=== PATIENT | male | born 1960 | race African-American/Black ===

== ENCOUNTER 2016-08-15 02:40 | Inpatient (IN) | payer MEDICAID ==
[2016-08-15] VITALS (14 sets, daily range): BP systolic 141–212; BP diastolic 65–95; PULSE 56–84; RESP 16–19; TEMP 97.7–98.2; O2SAT 97–100
[2016-08-15] MEDS ORDERED: ASPIRIN 81 MG CHEW TAB PO ONE (03:15)
[2016-08-15] MEDS ORDERED: SODIUM CHLORIDE 0.9% FLUSH 10 ML FLUSH IVF PRN (03:15)
[2016-08-15] MEDS: NITROGLYCERIN 0.4 MG SL 25 TABS/BTL SL SCH ×3 (03:20→03:32)
[2016-08-15 03:23] LABS: AUTOMATED NEUTROPHIL # 2.9 TH/MM3 (1.8-7.7); BASOPHIL # 0.1 TH/MM3 (0-0.2); BASOPHIL % 1.8 % (0.0-2.0); EOSINOPHIL # 0.2 TH/MM3 (0-0.4); HEMATOCRIT 35.3 % (39.0-51.0); HEMO FLAGS DIFF FINAL; LYMPH % 35.2 % (9.0-44.0); MEAN CELL VOLUME 91.7 FL (80.0-100.0); MEAN CORPUSCULAR HGB CONC 34.9 % (32.0-36.0); MONO % 8.8 % (0.0-8.0); NEUT % 50.2 % (16.0-70.0); PLATELET COUNT 286 TH/MM3 (150-450); RED BLOOD COUNT 3.85 MIL/MM3 (4.50-5.90); RED CELL DISTRIBUTION WIDTH 14.4 % (11.6-17.2); WHITE BLOOD COUNT 5.7 TH/MM3 (4.0-11.0)
[2016-08-15 03:30] LABS: APTT (PATIENT) 26.6 SEC (24.3-30.1); PROTHROMBIN TIME - PATIENT 11.4 SEC (9.8-11.6)
--- NOTE | 2016-08-15 03:31 | PD ---
HPI Chief Complaint: Chest Pain Time Seen by Provider: 03:00 Travel History International Travel<30 days: No Contact w/Intl Traveler<30days: No Traveled to known affect area: No History of Present Illness HPI 55-year-old male with history of CAD, cardiac stents 2, AICD, history for evaluation of chest discomfort. The patient reports having chest discomfort since around 5:00 PM yesterday evening. Pain is been constant, described as pressure/sharp, no modifying factors. He denies dyspnea. States that the pain feels slightly similar to when he had an [place] and had stents placed in April of this year in [facility]. No history of DVT or PE. No paresthesias or motor deficits. No fevers, chills, cough, or recent illness. He reports compliance with aspirin 81 mg daily and Plavix. PFSH Past Medical History Hx Anticoagulant Therapy: Yes Depression: Yes Cardiac Catheterization: Yes (cardiac stent x2) Cardiovascular Problems: Yes (MIx2) Cerebrovascular Accident: Yes Coronary Artery Disease: Yes Diabetes: Yes Patient Takes Glucophage: No Hypertension: Yes Social History Alcohol Use: No Tobacco Use: No (quit 3months ago) Substance Use: No Allergies-Medications (Allergen,Severity, Reaction): Coded Allergies: No Known Allergies (Unverified , 08/15/16) Review of Systems Except as stated in HPI: all other systems reviewed are Neg Physical Exam Narrative GENERAL: Well-developed, well-nourished, comfortable, no acute distress. SKIN: Focused skin assessment warm/dry. HEAD: Atraumatic. Normocephalic. EYES: Pupils equal and round. No scleral icterus. No injection or drainage. ENT: Mucous membranes pink and moist. NECK: Trachea midline. No JVD. CARDIOVASCULAR: Regular rate and rhythm. Distal pulses brisk and equal bilaterally. RESPIRATORY: No accessory muscle use. Clear to auscultation. Breath sounds equal bilaterally. GASTROINTESTINAL: Abdomen soft, non-tender, nondistended. MUSCULOSKELETAL: No obvious deformities. No clubbing. No cyanosis. No edema. NEUROLOGICAL: Awake and alert. No obvious cranial nerve deficits. Motor grossly within normal limits. Normal speech. PSYCHIATRIC: Appropriate mood and affect; insight and judgment normal. Data Data Last Documented VS Vital Signs Date Time Temp Pulse Resp B/P Pulse Ox O2 Delivery O2 Flow Rate FiO2 08/15/16 03:39 70 16 141/65 08/15/16 03:08 100 08/15/16 02:41 97.8 Room Air Orders Electrocardiogram (08/15/16 03:07) Basic Metabolic Panel (Bmp) (08/15/16 03:07) Ckmb (Isoenzyme) Profile (08/15/16 03:07) Complete Blood Count With Diff (08/15/16 03:07) Magnesium (Mg) (08/15/16 03:07) Prothrombin Time / Inr (Pt) (08/15/16 03:07) Act Partial Throm Time (Ptt) (08/15/16 03:07) Troponin I (08/15/16 03:07) Chest, Single Ap (08/15/16 03:07) Ecg Monitoring (08/15/16 03:07) Iv Access Insert/Monitor (08/15/16 03:07) Oximetry (08/15/16 03:07) Aspirin Chew (Aspirin Chew) (08/15/16 03:15) Sodium Chloride 0.9% Flush (Ns Flush) (08/15/16 03:15) Nitroglycerin Sl (Nitrostat Sl) (08/15/16 03:15) CKMB (08/15/16 03:10) CKMB% (08/15/16 03:10) Ondansetron Inj (Zofran Inj) (08/15/16 04:00) Labs Laboratory Tests Test 08/15/16 03:10 White Blood Count 5.7 TH/MM3 Red Blood Count 3.85 MIL/MM3 Hemoglobin 12.3 GM/DL Hematocrit 35.3 % Mean Corpuscular Volume 91.7 FL Mean Corpuscular Hemoglobin 32.0 PG Mean Corpuscular Hemoglobin 34.9 % Concent Red Cell Distribution Width 14.4 % Platelet Count 286 TH/MM3 Mean Platelet Volume 9.4 FL Neutrophils (%) (Auto) 50.2 % Lymphocytes (%) (Auto) 35.2 % Monocytes (%) (Auto) 8.8 % Eosinophils (%) (Auto) 4.0 % Basophils (%) (Auto) 1.8 % Neutrophils # (Auto) 2.9 TH/MM3 Lymphocytes # (Auto) 2.0 TH/MM3 Monocytes # (Auto) 0.5 TH/MM3 Eosinophils # (Auto) 0.2 TH/MM3 Basophils # (Auto) 0.1 TH/MM3 CBC Comment DIFF FINAL Differential Comment Prothrombin Time 11.4 SEC Prothromb Time International 1.0 RATIO Ratio Activated Partial 26.6 SEC Thromboplast Time Sodium Level 140 MEQ/L Potassium Level 5.2 MEQ/L Chloride Level 106 MEQ/L Carbon Dioxide Level 28.7 MEQ/L Anion Gap 5 MEQ/L Blood Urea Nitrogen 13 MG/DL Creatinine 1.12 MG/DL Estimat Glomerular Filtration 68 ML/MIN Rate Random Glucose 111 MG/DL Calcium Level 8.5 MG/DL Magnesium Level 1.6 MG/DL Total Creatine Kinase 205 U/L Creatine Kinase MB 2.9 NG/ML Troponin I 0.11 NG/ML MDM Medical Decision Making Medical Screen Exam Complete: Yes Emergency Medical Condition: Yes Interpretation(s) EKG: Sinus, rate 81, normal axis, normal intervals, LVH, Q waves in inferior leads, T-wave inversions in inferior leads Differential Diagnosis ACS, pneumothorax, pericarditis, PE, pneumonia Narrative Course Initial vital signs show heart rate 77, blood pressure 212/95, pulse ox 99% on room air, oral temp of 97.8F. After sublingual nitroglycerin the patient's blood pressure improved to 141/65. CBC is essentially unremarkable. BMP shows a potassium of 5.2 with slight hemolysis. Troponin is 0.11. Chest x-ray shows no acute cardio pulmonary disease. EKG does show Q waves in inferior leads with T-wave inversions in inferior leads with signs of LVH. There are no ST elevations. Patient's chest pain improved with nitroglycerin, however he became nauseous. He was given a full aspirin here in the emergency department. Case discussed with hospitalist Dr. Nicholson. The patient will be admitted to her service to the PSYCHIATRIC. She will start the patient on heparin. Diagnosis Primary Impression: Chest pain Qualified Code: R07.9 - Chest pain, unspecified type Additional Impression: Elevated troponin Admitting Information Admitting Physician Requests: Admit Bobby Diop MD August 15, 2016 03:31
[2016-08-15 03:39] LABS: ANION GAP 5 MEQ/L (5-15); BICARBONATE 28.7 MEQ/L (21.0-32.0); BLOOD UREA NITROGEN 13 MG/DL (7-18); CHLORIDE 106 MEQ/L (98-107); CREATINE KINASE 205 U/L (39-308); GLOMERULAR FILTRATION RATE 68 ML/MIN (>89); MAGNESIUM 1.6 MG/DL (1.5-2.5); SODIUM (NA) 140 MEQ/L (136-145)
--- NOTE | 2016-08-15 03:39 | RADRPT ---
EXAM DATE/TIME: 08/15/2016 03:20 [facility] COMPARISON: No previous studies available for comparison. INDICATIONS : Chest pain. MEDICAL HISTORY : None. SURGICAL HISTORY : None. ENCOUNTER: Initial ACUITY: 1 day PAIN SCORE: 0/10 LOCATION: Bilateral chest FINDINGS: The cardiac silhouette is enlarged in transverse diameter. The lungs are free of acute parenchymal op acity. No effusions are identified. A defibrillator device is in place via a left sided approach. CONCLUSION: 1. Cardiomegaly. No acute pulmonary disease. Pablo Mcdonald MD on August 15, 2016 at 3:37 Board Certified Radiologist. This report was verified electronically.
[2016-08-15 03:40] LABS: POTASSIUM 5.2 MEQ/L (3.5-5.1)
[2016-08-15 03:53] LABS: CKMB 2.9 NG/ML (0.5-3.6)
[2016-08-15] MEDS ORDERED: ONDANSETRON HCL 4 MG/2 ML VIAL IV PUSH ONE (04:00)
[2016-08-15] MEDS ORDERED: NALOXONE HCL 0.4 MG/ML AMP IV PRN (04:30)
[2016-08-15] MEDS ORDERED: SODIUM CHLORIDE 0.9% FLUSH 10 ML FLUSH IV FLUSH PRN (04:30)
--- NOTE | 2016-08-15 04:49 | HHI.HP ---
[facility] Reji Oliveira MD Admission Diagnosis chest pain, elevated troponin Diagnoses: Travel History International Travel<30 Days: No Contact w/Intl Traveler <30 Da: No Traveled to Known Affected Are: No History of Present Illness History from patient, er physician communication, and review of medical records. Patient reported that yesterday starting around 5:30 PM, he started not feeling well. He reports he was nauseous, had some chest pain, and was also having some headaches. He states that he then went to bed and at around 11:30 PM, he was woken up from sleep because of similar symptoms with chest pains and nausea. He states he went to the bathroom to vomit as well. He reports that this was then followed by having hiccups. He states that once he starts having hiccups and nausea, he knew that these were the symptoms of his prior heart attacks and therefore decided to come to hospital. He reports he had MIs twice in both time had similar symptoms. He reports that his chest tightness was not associated with pounding of his heart beat where he could hear it. Also associated with shortness of breath. Patient denies seeing any blood in his stool or urine. Also denies any cough. Denies any nausea or vomiting in previous days. Review of Systems Except as stated in HPI: all other systems reviewed are Neg Past Family Social History Past Medical History htn dm cad - 2 stents apr 22, 2016 aicd - apr 2016 for chf - maybe ppm as well from his discription chf liver enzymes high cva- residual right weakness, speech Past Surgical History coronary angiogram with 2 stent ppm or aicd placement Allergies: Coded Allergies: No Known Allergies (Unverified , 08/15/16) Family History sister had cva and cad family hx of heart problems in multiple members Social History smokes cigars and cigarrettes about 2 packs 2 weeks no drinking - used to drink about 10 or 12 beers a week or 2 beers a day used to use marijuana, occasional cocaine Physical Exam Vital Signs Vital Signs Date Time Temp Pulse Resp B/P Pulse Ox O2 Delivery O2 Flow Rate FiO2 08/15/16 03:39 70 16 141/65 08/15/16 03:39 16 08/15/16 03:31 68 145/65 08/15/16 03:25 70 151/66 08/15/16 03:08 100 08/15/16 02:41 97.8 77 18 212/95 99 Room Air Physical Exam GENERAL: This is a well-nourished, well-developed patient, in no apparent distress. SKIN: No rashes, ecchymoses or lesions. Cool and dry. HEAD: Atraumatic. Normocephalic. No temporal or scalp tenderness. EYES: No scleral icterus. No injection or drainage. ENT: Nose without bleeding, purulent drainage or septal hematoma. Airway patent. NECK: Trachea midline. No JVD Supple, nontender, no meningeal signs. CARDIOVASCULAR: Regular rate and rhythm without murmurs, gallops, or rubs. RESPIRATORY: Clear to auscultation. Breath sounds equal bilaterally. No wheezes , rales, or rhonchi. GASTROINTESTINAL: Abdomen soft, non-tender, nondistended. No guarding. MUSCULOSKELETAL: Extremities without clubbing, cyanosis, or edema. No calf tenderness. NEUROLOGICAL: Awake and alert. Motor and sensory grossly within normal limits. Normal speech. Laboratory Laboratory Tests Test 08/15/16 03:10 White Blood Count 5.7 Red Blood Count 3.85 Hemoglobin 12.3 Hematocrit 35.3 Mean Corpuscular Volume 91.7 Mean Corpuscular Hemoglobin 32.0 Mean Corpuscular Hemoglobin 34.9 Concent Red Cell Distribution Width 14.4 Platelet Count 286 Mean Platelet Volume 9.4 Neutrophils (%) (Auto) 50.2 Lymphocytes (%) (Auto) 35.2 Monocytes (%) (Auto) 8.8 Eosinophils (%) (Auto) 4.0 Basophils (%) (Auto) 1.8 Neutrophils # (Auto) 2.9 Lymphocytes # (Auto) 2.0 Monocytes # (Auto) 0.5 Eosinophils # (Auto) 0.2 Basophils # (Auto) 0.1 CBC Comment DIFF FINAL Differential Comment Prothrombin Time 11.4 Prothromb Time International 1.0 Ratio Activated Partial 26.6 Thromboplast Time Sodium Level 140 Potassium Level 5.2 Chloride Level 106 Carbon Dioxide Level 28.7 Anion Gap 5 Blood Urea Nitrogen 13 Creatinine 1.12 Estimat Glomerular Filtration 68 Rate Random Glucose 111 Calcium Level 8.5 Magnesium Level 1.6 Total Creatine Kinase 205 Creatine Kinase MB 2.9 Troponin I 0.11 Result Diagram: 08/15/1630908/15/16 031 Imaging Last 48 hours Impressions Chest X-Ray 08/15/16 030 Signed Impressions: Service Date/Time: Monday, August 15, 2016 03:20 - CONCLUSION: 1. Cardiomegaly. No acute pulmonary disease. Pablo Mcdonald MD Assessment and Plan Problem List: (1) Chest pain ICD Code: R07.9 Status: Acute (2) Elevated troponin ICD Code: R74.8 Status: Acute Assessment and Plan Impression: Non-ST elevation MD htn dm cad - 2 stents apr 22, 2016 aicd - apr 2016 for chf - maybe ppm as well from his discription chf liver enzymes high cva- residual right weakness, speech Plan: Serial cardiac enzymes and EKGs. Start patient on heparin drip. Aspirin full dose cardiology consult nitroglycerin prn sl monitor fingersticks with sliding scale coverage hold long acting insulin and oral hypoglycemics DVT prophylaxis on heparin drip GI prophylax on pantoprao Discussed Condition With patient, ER MD, family member at bedside Physician Certification 2 Midnight Certification Type: Admission for Inpatient Services Order for Inpatient Services The services are ordered in accordance with Medicare regulations or non- Medicare payer requirements, as applicable. In the case of services not specified as inpatient-only, they are appropriately provided as inpatient services in accordance with the 2-midnight benchmark. Estimated LOS (days): 2 days is the estimated time the patient will need to remain in the hospital, assuming treatment plan goals are met and no additional complications. Post-Hospital Plan: Home Problem Qualifiers (1) Chest pain: Qualified Code: R07.9 - Chest pain, unspecified type Adrienne Nicholson MD August 15, 2016 04:49
[2016-08-15] MEDS ORDERED: HEPARIN-D5W INJ 250 ML IV SCH (05:00)
[2016-08-15] MEDS ORDERED: NITROGLYCERIN 0.4 MG SL 25 TABS/BTL SL PRN (07:00)
[2016-08-15] MEDS: SODIUM CHLORIDE 0.9% FLUSH 10 ML FLUSH IV FLUSH SCH ×2 (08:24→20:46)
[2016-08-15] MEDS: NITROGLYCERIN 2% OINT 1 GM PACKET TOPICAL SCH ×2 (08:24→15:41)
--- NOTE | 2016-08-15 08:33 | EKG ---
Date Performed: 08/15/2016 Time Performed: 02:57:37 PTAGE: 55 years EKG: Sinus rhythm POSSIBLE LEFT ATRIAL ENLARGEMENT LEFT VENTRICULAR HYPERTROPHY AND ST-T CHANGE INFERIOR MYOCARDIAL IN FARCTION ABNORMAL ECG NO PREVIOUS TRACING DOCTOR: Florentino Adair Interpretating Date/Time 08/15/2016 08:32:08
[2016-08-15] MEDS ORDERED: ENALAPRIL MALEATE 5 MG TAB PO SCH (09:00)
[2016-08-15] MEDS ORDERED: CARVEDILOL 3.125 MG TAB PO SCH (09:00)
[2016-08-15] MEDS ORDERED: ASPIRIN EC 325 MG TABEC PO SCH (09:00)
--- NOTE | 2016-08-15 10:44 | MB ---
cc: MANINDER MARRERO DATE OF CONSULTATION 08/15/2016 DATE OF 1960 REASON FOR CONSULTATION Abnormal troponin level HISTORY OF PRESENT ILLNESS The patient is a 55-year-old -Citizen Of [place] male with a history of hypertension, diabetes, coronary artery disease, AICD implant, CVA who was in his usual state of health up until yesterday afternoon when he developed a fairly severe headache. The patient went to lie down and he began to experience a "bad taste" in his mouth similar to previous reflux problems. He then became nauseated and threw up a few times. He cannot recall whether he had any rudy chest pain. The patient was concerned as his symptoms were similar to nausea and vomiting he experienced prior to coronary stenting last April in [place]. The patient states he was admitted to a [place] hospital in early April of this year and underwent two coronary stents. About a week later, he had to be readmitted and a single chamber AICD was implanted for unclear indications. He denies any AICD shocks, syncope, near-syncope, palpitations. Chronically, he reports mild left calf swelling with negative ultrasounds in the past for deep venous thrombosis. PAST MEDICAL HISTORY As above. No other details currently available. MEDICATIONS Cardiac medications at home unknown. I am unable to locate his home of medication list. Here in hospital he has been placed on: 1. Aspirin 325 mg p.o. daily 2. Carvedilol 3.125 mg p.o. q.12 h 3. Enalapril 5 mg p.o. b.i.d. 4. Nitro-paste 0.5 inches q.8 h 5. Heparin drip ALLERGIES NO KNOWN DRUG ALLERGIES. FAMILY HISTORY Noncontributory. SOCIAL HISTORY The patient quit smoking three months ago. He denies alcohol abuse. REVIEW OF SYSTEMS As in the history of present illness, otherwise negative or noncontributory. He also denies visual changes, unilateral weakness or numbness, abdominal pain, melena, bright red blood per rectum. PHYSICAL EXAM On physical examination, his blood pressure 157/67 with a pulse of 60, respirations 19. GENERAL: In general, he is a well-developed, well-nourished -[place]izen [place] male in no acute distress. HEENT: On examination jugular venous pressure is normal. Carotid pulses are 2+ bilaterally and without bruits. CHEST: Examination of the chest reveals clear lung espino. CARDIAC: On cardiac examination, he has a regular rhythm and rate without S3-S4 or murmur. ABDOMEN: On abdominal examination, he has a soft, nontender abdomen. Bowel sounds are present. There is no definite hepatosplenomegaly. EXTREMITIES: Examination of extremities reveals no clubbing, cyanosis or edema. Peripheral pulses are normal throughout. LABORATORY DATA Includes potassium 5.2, BUN 13, creatinine 1.12, CK 205, troponin 0.11. WBC 5.7, hemoglobin 12.3, platelets 286. Chest x-ray shows no acute disease. EKG shows sinus rhythm, inferior infarct age undetermined, lateral T-wave abnormality consider ischemia. IMPRESSION Overall atypical symptoms for myocardial ischemia or infarction in this 55-year-old -Citizen [place] male with a history of coronary stenting about three months ago in [place] at which time he says he sustained a myocardial infarction and stroke, history of AICD implant April 2016, diabetes, hypertension. His symptoms yesterday evening were mostly nausea, vomiting, gastroesophageal reflux. Initial troponin level is slightly elevated. The patient states he did have some residual untreated disease noted on cardiac catheterization last April. His EKG does show lateral ST and T-wave changes, although they may be secondary to left ventricular hypertrophy. RECOMMENDATIONS 1. Check a Lexiscan nuclear stress test this morning. If no or mild ischemia is demonstrated, recommend medical therapy, optimizing blood pressure control as well. 2. Check a fasting lipid profile. 3. If his nuclear stress test does show moderate to severe ischemia, consider cardiac catheterization. MD CHIKI [place]/SANCHO /10:15 AM /10:28 AM ELENA
[2016-08-15] MEDS ORDERED: LISI40TA PO (10:48)
[2016-08-15] MEDS ORDERED: SPIR25TA PO (10:48)
[2016-08-15] MEDS ORDERED: ATOR40TA16 PO (10:48)
[2016-08-15] MEDS ORDERED: GABA300C5 PO (10:48)
[2016-08-15] MEDS ORDERED: ISOS60TA PO (10:48)
[2016-08-15] MEDS ORDERED: CARV12.52 PO (10:48)
[2016-08-15] MEDS ORDERED: ASPI1TAB69 PO (10:48)
[2016-08-15] MEDS ORDERED: JANU50TA4 PO (10:48)
[2016-08-15] MEDS ORDERED: CLOP75TA PO (10:48)
[2016-08-15] MEDS ORDERED: HEPARIN SODIUM - IV 10,000 UNITS/10 ML VIAL IV PRN ×2 (11:00)
[2016-08-15 11:14] LABS: AMPHETAMINE, URINE NEG (NEG); BARBITURATES, URINE NEG (NEG); COCAINE, URINE NEG (NEG)
[2016-08-15] MEDS: PANTOPRAZOLE SOD 40 MG DELAYED RELEASE TAB PO SCH (12:00)
--- NOTE | 2016-08-15 12:04 | HHI.PR ---
Subjective Remarks Follow up chest pain. Patient seen and examined. Patient states his chest pain is much better since given asa and nitroglycerin. He does have some epigastric tenderness with nausea and vomiting. He states it starts with a reflux taste in his mouth that comes with epigastric pain and vomiting. He also complains of pain in his left calf with numbness and tingling. He states he has had the pain for months and the calf swells when he is on his feet long periods of time. He is a former smoker and quit in Apr 2016. He states his in [place] put him on Neurontin for the pain, but it does not fully go away. Objective Vitals Vital Signs Date Time Temp Pulse Resp B/P Pulse Ox O2 Delivery O2 Flow Rate FiO2 08/15/16 08:05 97.9 61 19 157/67 100 08/15/16 06:00 97.7 61 18 164/76 97 08/15/16 05:18 57 16 160/72 100 2 08/15/16 03:39 70 16 141/65 08/15/16 03:39 16 08/15/16 03:31 68 145/65 08/15/16 03:25 70 151/66 08/15/16 03:08 100 08/15/16 02:41 97.8 77 18 212/95 99 Room Air I/O 08/14/16 08/14/16 08/14/16 08/15/16 08/15/16 08/15/16 07:00 15:00 23:00 07:00 15:00 23:00 Output Total 500 ml Balance -500 ml Output Urine Total 500 ml Result Diagram: 08/15/1630908/15/16309 Imaging Last Impressions Chest X-Ray 08/15/16306 Signed Impressions: Service Date/Time: Monday, August 15, 2016 03:20 - CONCLUSION: 1. Cardiomegaly. No acute pulmonary disease. Pablo Mcdonald MD Objective Remarks GENERAL: Well nourished patient in no acute distress SKIN: Warm and dry. HEAD: Atraumatic. Normocephalic. EYES: Pupils equal and round. No scleral icterus. No injection or drainage. ENT: No nasal bleeding or discharge. Mucous membranes pink and moist. NECK: Trachea midline. No JVD. CARDIOVASCULAR: Regular rate and rhythm. RESPIRATORY: No accessory muscle use. Clear to auscultation. Breath sounds equal bilaterally. GASTROINTESTINAL: Abdomen soft, epi gastric tenderness, nondistended. . MUSCULOSKELETAL: Left calf pain. Bilateral palpable pedal pulses. No edema NEUROLOGICAL: Awake and alert. Motor grossly within normal limits. Normal speech. PSYCHIATRIC: Appropriate mood and affect; insight and judgment normal. Medications and IVs Current Medications Medications (Trade) Dose Ordered Sig/Lorenza Route Start Time Stop Time Status Last Admin (NS Flush) 2 ml UNSCH PRN IV FLUSH 08/15/16 04:30 (NS Flush) 2 ml BID IV FLUSH 08/15/16 09:00 (Narcan Inj) 0.4 mg UNSCH PRN IV 08/15/16 04:30 (Heparin Inj) 5,000 units UNSCH PRN IV 08/15/16 11:00 Heparin Sodium (Porcine) 2500 units 2,500 units UNSCH PRN IV 08/15/16 11:00 (Heparin-D5W Inj) 250 ml @ 0 mls/hr TITRATE IV 08/15/16 05:00 08/15/16 05:15 (Nitrostat Sl) 0.4 mg Q5M PRN SL 08/15/16 07:00 (Nitroglycerin 2% Oint) 0.5 inch Q8HR TOPICAL 08/15/16 08:00 08/15/16 08:24 (Ecotrin Ec) 81 mg DAILY PO 08/16/16 09:00 (Lipitor) 40 mg HS PO 08/15/16 21:00 (Coreg) 12.5 mg BID PO 08/15/16 21:00 (Plavix) 75 mg DAILY PO 08/16/16 09:00 (Neurontin) 300 mg BID PO 08/15/16 21:00 (Imdur) 60 mg DAILY PO 08/16/16 09:00 (Aldactone) 25 mg BIDPC PO 08/15/16 18:00 (Prinivil) 40 mg DAILY PO 08/16/16 09:00 (Januvia) 50 mg BID PO 08/15/16 21:00 (Glucophage) 500 mg BID PO 08/15/16 21:00 (Protonix) 40 mg DAILY PO 08/15/16 11:45 UNV A/P Problem List: (1) Chest pain ICD Code: R07.9 Status: Acute (2) Elevated troponin ICD Code: R74.8 Status: Acute (3) Pain of left calf ICD Code: M79.662 Status: Acute (4) Substance abuse ICD Code: F19.10 Status: Acute Assessment and Plan 55 y/o male with a history of HTN, DM, CHF, AICD presented with chest pain. Non-Stemi, chest pain atypical, symptoms more resemble GERD Labs: troponin .11-->.12 -Cardiology consulted, planning stress test today. Per Dr. Steele: If mild to moderate disease, tx with medical management, if mod-severe disease proceed with heart cath. -Nitropaste Q8hr -Cont home medications lisinopril, coreg, plavix, asa -Heparin drip -lipid panel pending Left calf pain and swelling when on feet for prolonged periods, r/o dvt, likely neuropathy and venous insufficiency combination -Doppler US ordered -If negative will order ANJALI Epigastric pain with reflux symptoms of heartburn, reflux taste in mouth and vomiting -Protonix 40mg daily -Encouraged to avoid alcohol and marijuana DM, chronic -Cont home medications Januvia, and metformin Substance abuse, cocaine and marijuana -Counseled on continuing to substrain DVT prophylaxis: Heparin GI prophylaxis: Protonix Discharge Planning Pending stress test Problem Qualifiers (1) Chest pain: Qualified Code: R07.9 - Chest pain, unspecified type Molly Reis August 15, 2016 12:04
[2016-08-15] MEDS ORDERED: REGADENOSON INJ 0.4 MG/5 ML SYR ONE (12:39)
--- NOTE | 2016-08-15 12:39 | RADRPT ---
EXAM DATE/TIME: 08/15/2016 11:40 [facility] COMPARISON: No previous studies available for comparison. INDICATIONS : Left leg pain. MEDICAL HISTORY : Myocardial infarction. Hypertension. Cerebrovascular accident. Coronary artery disease. Anticoagu lant therapy. Respiratory disorder. Diabetes. Depression. SURGICAL HISTORY : Cardiac catheterization . Cardiac stents placement. AICD. ENCOUNTER: Initial ACUITY: 1 day PAIN SCORE: 4/10 LOCATION: Left leg. TECHNIQUE: Venous ultrasound of the leg was performed from the inguinal ligament to the proximal calf. Real-eileen e, color Doppler and spectral tracing, compression and augmentation techniques were used. FINDINGS: There is normal compressibility of the deep venous system from the inguinal region to the proximal ca lf. No echogenic clot is seen in the lumen of the common femoral, femoral, popliteal, and posterior tibial veins. There is a normal response of the venous system to proximal and distal augmentation an d respiration. CONCLUSION: Normal examination. Reji Foote MD on August 15, 2016 at 12:36 Board Certified Radiologist. This report was verified electronically.
--- NOTE | 2016-08-15 15:20 | RADRPT ---
EXAM DATE/TIME: 08/15/2016 12:15 [facility] COMPARISON: No previous studies available for comparison. INDICATIONS : Chest pain. Coronary artery disease. DOSE: 25.9 mCi Tc99m Myoview at stress. 8.1 mCi Tc99m Myoview at rest. 0.4 mg Lexiscan STRESS SYMPTOMS: Nausea. EJECTION FRACTION: 18% MEDICAL HISTORY : Hypertension. Myocardial infarction. SURGICAL HISTORY : Coronary artery stent. AICD ENCOUNTER: Initial ACUITY: 1 day PAIN SCALE: 2/10 LOCATION: Chest TECHNIQUE: The patient underwent pharmacologic stress with infusion of prescribed dose. Continuous ECG tracing was monitored during stress. Gated SPECT imaging was performed after stress and conventional SPECT i maging was performed at rest. The examination was performed on a SPECT/CT scanner, both attenuation and non-corrected datasets were reviewed. FINDINGS: The gated Cine loop images demonstrate severe global hypokinesis. The left ventricular ejection fract ion is calculated at 18%. The cardiac SPECT stress and rest images demonstrate extensive fixed defects involving the cardiac ap ex, inferior wall and lateral wall suggesting infarcts in the LAD, RCA and LCX distributions. No rev ersible defects are noted to suggest ischemia. CONCLUSION: 1. Extensive fixed defects involving the cardiac apex, inferior wall and lateral wall indicating infa rcts in the LAD, RCA and LCX distributions. 2. No reversible defect to suggest ischemia. 3. Severe global hypokinesis with left ventricular ejection fraction equalling 18%. RISK CATEGORY: High risk (greater than 3% annual mortality rate). Wilner Pena MD on August 15, 2016 at 15:12 Board Certified Radiologist. This report was verified electronically.
[2016-08-15 15:48] LABS: APTT (PATIENT) 40.1 SEC (24.3-30.1)
[2016-08-15] MEDS: SPIRONOLACTONE 25 MG TAB PO SCH (17:27)
[2016-08-15] MEDS: GABAPENTIN 300 MG CAP PO SCH (20:45)
[2016-08-15] MEDS: metFORMIN HCL 500 MG TAB PO SCH (20:45)
[2016-08-15] MEDS: CARVEDILOL 12.5 MG TAB PO SCH (20:46)
[2016-08-15] MEDS ORDERED: ATORVASTATIN 40 MG TAB PO SCH (21:00)
[2016-08-15] MEDS ORDERED: NON-FORMULARY DRUG (Sitagliptin-Metformin (Janumet) 1 TAB) PO SCH (21:00)
[2016-08-16] VITALS (10 sets, daily range): BP systolic 130–161; BP diastolic 64–89; PULSE 54–78; RESP 15–20; TEMP 98–98.2; O2SAT 97–100
[2016-08-16 06:16] LABS: AUTOMATED NEUTROPHIL # 2.7 TH/MM3 (1.8-7.7); BASOPHIL % 0.9 % (0.0-2.0); EOSINOPHIL # 0.1 TH/MM3 (0-0.4); EOSINOPHIL % 2.7 % (0.0-4.0); HEMO FLAGS DIFF FINAL; LYMPH % 33.2 % (9.0-44.0); LYMPHOCYTE # 1.7 TH/MM3 (1.0-4.8); MEAN CELL VOLUME 90.9 FL (80.0-100.0); MEAN CORPUSCULAR HEMOGLOBIN 31.6 PG (27.0-34.0); MEAN CORPUSCULAR HGB CONC 34.8 % (32.0-36.0); MONO % 10.2 % (0.0-8.0); PLATELET COUNT 252 TH/MM3 (150-450); RED BLOOD COUNT 3.75 MIL/MM3 (4.50-5.90); RED CELL DISTRIBUTION WIDTH 14.7 % (11.6-17.2); WHITE BLOOD COUNT 5.2 TH/MM3 (4.0-11.0)
[2016-08-16 06:45] LABS: BICARBONATE 27.8 MEQ/L (21.0-32.0); MAGNESIUM 1.7 MG/DL (1.5-2.5); POTASSIUM 3.8 MEQ/L (3.5-5.1)
[2016-08-16 06:47] LABS: HDL CHOLESTEROL 43.8 MG/DL (40.0-60.0)
[2016-08-16] MEDS ORDERED: LISINOPRIL 20 MG TAB PO SCH (09:00)
[2016-08-16] MEDS ORDERED: ASPIRIN EC 81 MG TABEC PO SCH (09:00)
[2016-08-16] MEDS ORDERED: CLOPIDOGREL 75 MG TAB PO SCH (09:00)
[2016-08-16] MEDS ORDERED: ISOSORBIDE MONONITRATE 60 MG TAB PO SCH (09:00)
[2016-08-16] MEDS ORDERED: PANT40TA3 PO (09:21)
[2016-08-16] MEDS ORDERED: AMLO10 PO (09:21)
--- NOTE | 2016-08-16 09:24 | HHI.FF ---
Face to Face Verification Diagnosis: (1) Ischemic cardiomyopathy Home Health Nursing Order: Nursing assessment with vital signs Instructions: Patient needs home health nurse for medication management. I have seen patient Dewey Hernandes on 08/16/16. My clinical findings support the need for the requested home health care services because: Med compliance is questionable I certify that my clinical findings support that this patient is homebound because: Poor cardiac reserve Gee Samuel MD August 16, 2016 09:24
[2016-08-16] MEDS: SPIRONOLACTONE 25 MG TAB PO SCH (09:50)
[2016-08-16] MEDS: metFORMIN HCL 500 MG TAB PO SCH (09:50)
[2016-08-16] MEDS: CARVEDILOL 12.5 MG TAB PO SCH (09:50)
[2016-08-16] MEDS: GABAPENTIN 300 MG CAP PO SCH (09:51)
[2016-08-16] MEDS: PANTOPRAZOLE SOD 40 MG DELAYED RELEASE TAB PO SCH (09:51)
[2016-08-16] MEDS: SODIUM CHLORIDE 0.9% FLUSH 10 ML FLUSH IV FLUSH SCH (09:53)
--- NOTE | 2016-08-16 18:23 | EKG ---
Date Performed: 08/15/2016 Time Performed: 09:12:05 PTAGE: 55 years EKG: SINUS BRADYCARDIA LEFT VENTRICULAR HYPERTROPHY AND ST-T CHANGE INFERIOR MYOCARDIAL INFARCTI ON ABNORMAL ECG Compared to prior tracing no significant change PREVIOUS TRACING on 08/15/2016. DOCTOR: Pablo Lainez Interpretating Date/Time 08/16/2016 18:31:58
--- NOTE | 2016-08-22 12:07 | HHI.DS ---
Discharge Summary Admission Date August 15, 2016 at 06:06 Discharge Date: August 16, 2016 Admitting Diagnosis chest pain, elevated troponin (1) Chest pain ICD Code: R07.9 (2) Elevated troponin ICD Code: R74.8 (3) Pain of left calf ICD Code: M79.662 (4) Substance abuse ICD Code: F19.10 Procedures no invasive procedures performed. Brief History - From Admission History from patient, er physician communication, and review of medical records. Patient reported that yesterday starting around 5:30 PM, he started not feeling well. He reports he was nauseous, had some chest pain, and was also having some headaches. He states that he then went to bed and at around 11:30 PM, he was woken up from sleep because of similar symptoms with chest pains and nausea. He states he went to the bathroom to vomit as well. He reports that this was then followed by having hiccups. He states that once he starts having hiccups and nausea, he knew that these were the symptoms of his prior heart attacks and therefore decided to come to hospital. He reports he had MIs twice in both time had similar symptoms. He reports that his chest tightness was not associated with pounding of his heart beat where he could hear it. Also associated with shortness of breath. Patient denies seeing any blood in his stool or urine. Also denies any cough. Denies any nausea or vomiting in previous days. Imaging Last Impressions Chest X-Ray 08/15/16 0307 Signed Impressions: Service Date/Time: Monday, August 15, 2016 03:20 - CONCLUSION: 1. Cardiomegaly. No acute pulmonary disease. Pablo Mcdonald MD Myocardial Perfusion Scan Nuc Med 08/15/16 0000 Signed Impressions: Service Date/Time: Monday, August 15, 2016 12:15 - CONCLUSION: 1. Extensive fixed defects involving the cardiac apex, inferior wall and lateral wall indicating infarcts in the LAD, RCA and LCX distributions. 2. No reversible defect to suggest ischemia. 3. Severe global hypokinesis with left ventricular ejection fraction equalling 18%%. RISK CATEGORY: High risk ( greater than 3%% annual mortality rate). Wilner Pena MD Lower Extremity Ultrasound 08/15/16 0000 Signed Impressions: Service Date/Time: Monday, August 15, 2016 11:40 - CONCLUSION: Normal examination. Reji Foote MD PE at Discharge GENERAL: Well nourished patient in no acute distress SKIN: Warm and dry. HEAD: Atraumatic. Normocephalic. EYES: Pupils equal and round. No scleral icterus. No injection or drainage. ENT: No nasal bleeding or discharge. Mucous membranes pink and moist. NECK: Trachea midline. No JVD. CARDIOVASCULAR: Regular rate and rhythm. RESPIRATORY: No accessory muscle use. Clear to auscultation. Breath sounds equal bilaterally. GASTROINTESTINAL: Abdomen soft, epi gastric tenderness, nondistended. . MUSCULOSKELETAL: Left calf pain. Bilateral palpable pedal pulses. No edema NEUROLOGICAL: Awake and alert. Motor grossly within normal limits. Normal speech. PSYCHIATRIC: Appropriate mood and affect; insight and judgment normal. Pt update on day of discharge patient feeling well. feels comfortable going home. Hospital Course Patient with markedly elevated blood pressure on admission 220 systolic. She was managed with addition of amlodipine. Cardiology was consult and. Patient underwent myocardial perfusion scan which showed extensive fixed defects. Please see report. Patient was cleared by cardiology, will need to follow up with cardiology as outpatient. Chest pain improved with addition of PPI. Patient will be continued on PPI. He will rosa follow-up with cardiology and primary care. For problem-based summary for most recent progress note, please see below. 55 y/o male with a history of HTN, DM, CHF, AICD presented with chest pain. Non-Stemi, chest pain atypical, symptoms more resemble GERD Labs: troponin .11-->.12 -Cardiology consulted, planning stress test today. Per Dr. Steele: If mild to moderate disease, tx with medical management, if mod-severe disease proceed with heart cath. -Nitropaste Q8hr -Cont home medications lisinopril, coreg, plavix, asa -Heparin drip -lipid panel pending Left calf pain and swelling when on feet for prolonged periods, r/o dvt, likely neuropathy and venous insufficiency combination -Doppler US ordered -If negative will order ANJALI Epigastric pain with reflux symptoms of heartburn, reflux taste in mouth and vomiting -Protonix 40mg daily -Encouraged to avoid alcohol and marijuana DM, chronic -Cont home medications Januvia, and metformin Substance abuse, cocaine and marijuana -Counseled on continuing to substrain DVT prophylaxis: Heparin GI prophylaxis: Protonix Discharge Planning Pending stress test Pt Condition on Discharge: Good Discharge Disposition: Disch w/ Home Health Serv Discharge Time: <= 30 minutes Discharge Instructions DIET: Follow Instructions for: Diabetic Diet Activities you can perform: Regular-No Restrictions Follow up Referrals: Cardiology - 2 Weeks with Oni Oakley DO PCP Follow-up - 1 Week with Reji Oliveira MD New Medications: Amlodipine (Norvasc) 10 Mg Tab 10 MG PO DAILY heart #30 TAB Pantoprazole (Pantoprazole) 40 Mg Tab 40 MG PO DAILY Reflux #30 TAB Continued Medications: Aspirin (Aspirin) 81 Mg Tabdr 81 MG PO DAILY TAB Atorvastatin (Atorvastatin) 40 Mg Tab 40 MG PO HS Cholesterol Management #30 Ref 0 TAB Carvedilol (Carvedilol) 12.5 Mg Tab 12.5 MG PO BID #60 Ref 0 TAB Clopidogrel (Clopidogrel) 75 Mg Tab 75 MG PO DAILY Blood Clot Prevention #30 Ref 0 TAB Gabapentin (Gabapentin) 300 Mg Cap 300 MG PO BID #60 Ref 0 CAP Isosorbide Mononitrate ER (Isosorbide Mononitrate ER) 60 Mg Tab 60 MG PO DAILY Prevent Chest Pain #30 Ref 0 TAB Lisinopril (Lisinopril) 40 Mg Tab 40 MG PO DAILY Blood Pressure Management #30 Ref 0 TAB Sitagliptin-Metformin (Janumet) 50-500 Mg Tab 1 TAB PO BID Blood Sugar Management #60 Ref 0 TAB Spironolactone (Spironolactone) 25 Mg Tab 25 MG PO BIDPC #60 Ref 0 TAB Gee Samuel MD August 22, 2016 12:07
== END 2016-08-16 12:30 | disposition home health service (06) | DRG 313 ==
LOC: NEPE 02:40 → INTOOBSV 04:22 → NEDA 04:22 → NEPFCDU 05:47 → OBSVTOIN 06:06 → HCIS 18:00
PROVIDERS: ADMIT Internal Medicine; ATTEND Internal Medicine
DX: R07.9 Chest pain, unspecified (principal); K21.9 Gastro-esophageal reflux disease without esophagitis; R74.8 Abnormal levels of other serum enzymes; I25.10 Atherosclerotic heart disease of native coronary artery without angina pectoris; I25.2 Old myocardial infarction; I50.9 Heart failure, unspecified; Z95.810 Presence of automatic (implantable) cardiac defibrillator; Z95.5 Presence of coronary angioplasty implant and graft; F19.10 Other psychoactive substance abuse, uncomplicated; M79.662 Pain in left lower leg; I10 Essential (primary) hypertension; E11.9 Type 2 diabetes mellitus without complications; Z79.84 Long term (current) use of oral hypoglycemic drugs; Z79.4 Long term (current) use of insulin; Z79.82 Long term (current) use of aspirin; Z79.02 Long term (current) use of antithrombotics/antiplatelets; Z87.891 Personal history of nicotine dependence
CPT/HCPCS: 71010; 76937; 78452; 80048; 80061; 80069; 80307; 82550; 82552; 83735; 84484; 85025; 85610; 85730; 93005; 93017; 93971; 96374; A9502; J1644; J2405; J2785

== ENCOUNTER 2016-09-29 08:15 | Emergency (ER) | payer MEDICAID ==
[~2016-09-29] VITALS: Ht 160 cm; Wt 62.0 kg
[~2016-09-29 08:15] MED LIST: AMLO10 PO; ASPI1TAB69 PO; ATOR40TA16 PO; CARV12.52 PO; CLOP75TA PO; GABA300C5 PO; ISOS60TA PO; JANU50TA4 PO; LISI40TA PO; PANT40TA3 PO; SPIR25TA PO
[2016-09-29 08:19] VITALS: BP 146/70; PULSE 63; RESP 18; TEMP 97.6; O2SAT 100
[2016-09-29] MEDS ORDERED: SODIUM CHLOR 0.9% 1000 ML INJ 1,000 ML IV SCH (08:49)
--- NOTE | 2016-09-29 08:53 | PD ---
HPI Chief Complaint: GI Complaint Time Seen by Provider: 08:48 Travel History International Travel<30 days: No Contact w/Intl Traveler<30days: No Traveled to known affect area: No History of Present Illness HPI 55-year-old male with history of hypertension, A. fib, CHF, presents to the ER today because he has had 5 days history of nausea, vomiting, diarrhea, and abdominal pains. He denies any fevers, or other symptoms. He does not know any sick contacts and denies any recent antibiotic use or travel. He denies any black stools. Modifying Factors: None Associated Signs & Symptoms: Nausea, vomiting, diarrhea Risk Factors: None PFSH Past Medical History Hx Anticoagulant Therapy: Yes Asthma: No Blood Disorders: No Anxiety: No Depression: Yes Heart Rhythm Problems: Yes Cancer: No Cardiac Catheterization: Yes Cardiovascular Problems: Yes (INTERNAL DEFIBRILLATOR) High Cholesterol: Yes Chest Pain: Yes Congestive Heart Failure: No COPD: No Cerebrovascular Accident: Yes Coronary Artery Disease: Yes Diabetes: Yes Patient Takes Glucophage: No Endocrine: Yes Genitourinary: No Hypertension: Yes Immune Disorder: No Musculoskeletal: No Neurologic: Yes (CVA - RIGHT SIDE WEAKNESS) Psychiatric: Yes Reproductive: No Respiratory: Yes Sleep Apnea: No Tetanus Vaccination: > 5 Years Influenza Vaccination: Yes Past Surgical History Abdominal Surgery: No Body Medical Devices: AICD, CARDIAC STENT Cardiac Surgery: Yes Coronary Stent: Yes Social History Alcohol Use: No Tobacco Use: No Substance Use: No Allergies-Medications (Allergen,Severity, Reaction): Coded Allergies: No Known Allergies (Unverified , 09/29/16) Reported Meds & Prescriptions Reported Meds & Active Scripts Active Pantoprazole (Pantoprazole Sodium) 40 Mg Tab 40 Mg PO DAILY Norvasc (Amlodipine Besylate) 10 Mg Tab 10 Mg PO DAILY Reported Janumet (Sitagliptin-Metformin) 50-500 Mg Tab 1 Tab PO BID Spironolactone 25 Mg Tab 25 Mg PO BIDPC Clopidogrel (Clopidogrel Bisulfate) 75 Mg Tab 75 Mg PO DAILY Isosorbide Mononitrate ER (Isosorbide Mononitrate) 60 Mg Tab 60 Mg PO DAILY Aspirin 81 Mg Tabdr 81 Mg PO DAILY Atorvastatin (Atorvastatin Calcium) 40 Mg Tab 40 Mg PO HS Lisinopril 40 Mg Tab 40 Mg PO DAILY Carvedilol 12.5 Mg Tab 12.5 Mg PO BID Gabapentin 300 Mg Cap 300 Mg PO BID Review of Systems Except as stated in HPI: all other systems reviewed are Neg Physical Exam Narrative GENERAL: Well-developed middle age after [place] male patient currently in mild distress. Awake and oriented 3. SKIN: Focused skin assessment warm/dry. HEAD: Atraumatic. Normocephalic. EYES: Pupils equal and round. No scleral icterus. No injection or drainage. ENT: No nasal bleeding or discharge. Mucous membranes pink and moist. NECK: Trachea midline. No JVD. CARDIOVASCULAR: Regular rate and rhythm. No murmur appreciated. RESPIRATORY: No accessory muscle use. Clear to auscultation. Breath sounds equal bilaterally. GASTROINTESTINAL: Abdomen soft, mild focal tenderness without guarding or rebound, nondistended. Hepatic and splenic margins not palpable. MUSCULOSKELETAL: No obvious deformities. No clubbing. No cyanosis. No edema. NEUROLOGICAL: Awake and alert. No obvious cranial nerve deficits. Motor grossly within normal limits. Normal speech. PSYCHIATRIC: Appropriate mood and affect; insight and judgment normal. Data Data Last Documented VS Vital Signs Date Time Temp Pulse Resp B/P Pulse Ox O2 Delivery O2 Flow Rate FiO2 09/29/16 09:21 62 15 183/87 100 Room Air 09/29/16 08:19 97.6 Orders Complete Blood Count With Diff (09/29/16 08:49) Comprehensive Metabolic Panel (09/29/16 08:49) Lipase (09/29/16 08:49) Abdomen, Flat & Upright (09/29/16 ) Iv Access Insert/Monitor (09/29/16 08:49) Ecg Monitoring (09/29/16 08:49) Oximetry (09/29/16 08:49) Morphine Inj (Morphine Inj) (09/29/16 09:00) Ondansetron Inj (Zofran Inj) (09/29/16 09:00) Sodium Chlor 0.9% 1000 Ml Inj (Ns 1000 M (09/29/16 08:49) Sodium Chloride 0.9% Flush (Ns Flush) (09/29/16 09:00) Ct Abd/Pel W/O Iv Contrast (09/29/16 10:17) Electrocardiogram (09/29/16 11:03) Labs Laboratory Tests Test 09/29/16 09/29/16 09:15 10:20 White Blood Count 7.2 TH/MM3 Red Blood Count 4.27 MIL/MM3 Hemoglobin 13.3 GM/DL Hematocrit 39.5 % Mean Corpuscular Volume 92.5 FL Mean Corpuscular Hemoglobin 31.2 PG Mean Corpuscular Hemoglobin 33.7 % Concent Red Cell Distribution Width 13.2 % Platelet Count 250 TH/MM3 Mean Platelet Volume 8.8 FL Neutrophils (%) (Auto) 62.3 % Lymphocytes (%) (Auto) 21.6 % Monocytes (%) (Auto) 11.3 % Eosinophils (%) (Auto) 3.7 % Basophils (%) (Auto) 1.1 % Neutrophils # (Auto) 4.5 TH/MM3 Lymphocytes # (Auto) 1.5 TH/MM3 Monocytes # (Auto) 0.8 TH/MM3 Eosinophils # (Auto) 0.3 TH/MM3 Basophils # (Auto) 0.1 TH/MM3 CBC Comment DIFF FINAL Differential Comment Sodium Level 134 MEQ/L Potassium Level 6.5 MEQ/L Chloride Level 109 MEQ/L Carbon Dioxide Level 19.2 MEQ/L Anion Gap 6 MEQ/L Blood Urea Nitrogen 34 MG/DL Creatinine 2.27 MG/DL Estimat Glomerular Filtration 37 ML/MIN Rate Random Glucose 131 MG/DL Calcium Level 8.9 MG/DL Total Bilirubin 0.2 MG/DL Aspartate Amino Transf 22 U/L (AST/SGOT) Alanine Aminotransferase 33 U/L (ALT/SGPT) Alkaline Phosphatase 141 U/L Total Protein 8.5 GM/DL Albumin 4.0 GM/DL Lipase 243 U/L [facility] Medical Decision Making Medical Screen Exam Complete: Yes Emergency Medical Condition: Yes Medical Record Reviewed: Yes Interpretation(s) EKG shows sinus bradycardia rate of 47 bpm with abnormal T wave pointing, worrisome for changes related to potassium. Laboratory Tests Test 09/29/16 09/29/16 09:15 10:20 Red Blood Count 4.27 MIL/MM3 (4.50-5.90) Monocytes (%) (Auto) 11.3 % (0.0-8.0) Sodium Level 134 MEQ/L (136-145) Potassium Level 6.5 MEQ/L (3.5-5.1) Chloride Level 109 MEQ/L (98-107) Carbon Dioxide Level 19.2 MEQ/L (21.0-32.0) Blood Urea Nitrogen 34 MG/DL (7-18) Creatinine 2.27 MG/DL (0.60-1.30) Estimat Glomerular Filtration 37 ML/MIN (>89) Rate Random Glucose 131 MG/DL (74-106) Alkaline Phosphatase 141 U/L (45-117) Total Protein 8.5 GM/DL (6.4-8.2) Last 24 hours Impressions Abdomen X-Ray 09/29/16 0000 Signed Impressions: Service Date/Time: Thursday, September 29, 2016 09:52 - CONCLUSION: 1. No acute significant abnormality is identified within the abdomen. 2. Air-fluid levels are present in the colon which typically correlate with diarrhea clinically. Reji Urbina MD Differential Diagnosis Nausea, vomiting, diarrheagastroenteritis versus dehydration versus metabolic issues versus obstruction Narrative Course Lab work shows significant elevation in renal function, suspicion of dehydration. His potassium is elevated as well and EKG is showing signs of potassium elevation changes. I am concerned about his findings and have offered to admit him to the hospital. CT of the abdomen pelvis did not show any signs of other acute processes. However, the patient is stating that he does not want to stay, wants to be released. I have told him that he is at risk for further decompensation and including renal failure, dysrhythmias, and other processes including . Patient states understanding and states that he does not want to stay. He will be leaving AMA. AMA: The risks of leaving against medical advice without further evaluation treatment were discussed with the patient. These risks include cardiac dysfunction, cardiac dysrhythmia, possible heart attack, possible stroke or . The patient indicated understanding of these risks and appeared to have the capacity to make this decision. Diagnosis Primary Impression: Hyperkalemia Additional Impressions: Acute renal failure Nausea and vomiting Disposition: 07 AGAINST MEDICAL ADVICE Condition: Stable Brooks Montes MD Sep 29, 2016 08:53
[2016-09-29] MEDS ORDERED: SODIUM CHLORIDE 0.9% FLUSH 10 ML FLUSH IV FLUSH PRN (09:00)
[2016-09-29] MEDS ORDERED: MORPHINE SULFATE 4 MG/ML INJ IV PUSH ONE (09:00)
[2016-09-29] MEDS ORDERED: ONDANSETRON HCL 4 MG/2 ML VIAL IVP ONE (09:00)
[2016-09-29 09:21] VITALS: BP 183/87; PULSE 62; RESP 15; O2SAT 100
[2016-09-29 09:23] LABS: AUTOMATED NEUTROPHIL # 4.5 TH/MM3 (1.8-7.7); BASOPHIL # 0.1 TH/MM3 (0-0.2); BASOPHIL % 1.1 % (0.0-2.0); EOSINOPHIL # 0.3 TH/MM3 (0-0.4); EOSINOPHIL % 3.7 % (0.0-4.0); HEMATOCRIT 39.5 % (39.0-51.0); HEMO FLAGS DIFF FINAL; LYMPH % 21.6 % (9.0-44.0); LYMPHOCYTE # 1.5 TH/MM3 (1.0-4.8); MEAN CELL VOLUME 92.5 FL (80.0-100.0); MEAN CORPUSCULAR HEMOGLOBIN 31.2 PG (27.0-34.0); MEAN CORPUSCULAR HGB CONC 33.7 % (32.0-36.0); MONO % 11.3 % (0.0-8.0); NEUT % 62.3 % (16.0-70.0); PLATELET COUNT 250 TH/MM3 (150-450); RED BLOOD COUNT 4.27 MIL/MM3 (4.50-5.90); RED CELL DISTRIBUTION WIDTH 13.2 % (11.6-17.2); WHITE BLOOD COUNT 7.2 TH/MM3 (4.0-11.0)
--- NOTE | 2016-09-29 10:26 | RADRPT ---
EXAM DATE/TIME: 09/29/2016 09:52 [facility] COMPARISON: No previous studies available for comparison. INDICATIONS : Vomiting, diarrhea for 5 days MEDICAL HISTORY : None. SURGICAL HISTORY : None. ENCOUNTER: Initial ACUITY: 4 - 6 days PAIN SCORE: 10/10 LOCATION: Bilateral abdomen FINDINGS: Supine and upright views of the abdomen demonstrate air within small and large bowel in a nonobstruct giuseppe pattern. No organomegaly or abnormal calcifications are identified. No abnormal mass effect is ap preciated. Upright image demonstrates no free intraperitoneal air or significant air-fluid level. How ever, there is an air-fluid level in the stomach and within the transverse and right colon. Visualize d bones demonstrate no acute finding and lower lung zones are clear. Cardiac pacing wires overlie the heart. The there is mild levoscoliosis. CONCLUSION: 1. No acute significant abnormality is identified within the abdomen. 2. Air-fluid levels are present in the colon which typically correlate with diarrhea clinically. Reji Urbina MD on September 29, 2016 at 10:12 Board Certified Radiologist. This report was verified electronically.
[2016-09-29 10:54] LABS: ALT (GPT) 33 U/L (12-78); ANION GAP 6 MEQ/L (5-15); AST (GOT) 22 U/L (15-37); BICARBONATE 19.2 MEQ/L (21.0-32.0); BLOOD UREA NITROGEN 34 MG/DL (7-18); CHLORIDE 109 MEQ/L (98-107); GLOMERULAR FILTRATION RATE 37 ML/MIN (>89); POTASSIUM 6.5 MEQ/L (3.5-5.1); SODIUM (NA) 134 MEQ/L (136-145)
[2016-09-29 10:57] LABS: ALKALINE PHOSPHATASE 141 U/L (45-117); TOTAL BILIRUBIN ADULT 0.2 MG/DL (0.2-1.0)
--- NOTE | 2016-09-29 11:57 | RADRPT ---
EXAM DATE/TIME: 09/29/2016 11:32 [facility] COMPARISON: No previous studies available for comparison. INDICATIONS : Vomiting for four days. ORAL CONTRAST: No oral contrast ingested. RADIATION DOSE: 9.96 CTDIvol (mGy) MEDICAL HISTORY : Cardiovascular disease. SURGICAL HISTORY : None. ENCOUNTER: Initial ACUITY: 1 day PAIN SCALE: 5/10 LOCATION: Bilateral abdomen. TECHNIQUE: Volumetric scanning of the abdomen and pelvis was performed. Using automated exposure control and ad justment of the mA and/or kV according to patient size, radiation dose was kept as low as reasonably achievable to obtain optimal diagnostic quality images. FINDINGS: There is respiratory motion artifact. LOWER LUNGS: The visualized lower lungs are clear. Wires are present in the right heart. LIVER: Homogeneous density without lesion. There is no dilation of the biliary tree. No calcified gallston es. SPLEEN: Normal size without lesion. PANCREAS: Within normal limits. KIDNEYS: Normal in size and shape. There is no mass or hydronephrosis. There is a 3 millimeter nonobstructing stone in the left mid kidney. ADRENAL GLANDS: Within normal limits. VASCULAR: There is severe atherosclerotic disease with ectasia. Abdominal aorta measures up to 2.9 cm. BOWEL/MESENTERY: The stomach, small bowel, and colon demonstrate no acute abnormality. There is fluid throughout most of the colon. No wall thickening is present. The appendix is not visualized. There is no free intrap eritoneal air or fluid. ABDOMINAL WALL: Within normal limits. RETROPERITONEUM: There is no lymphadenopathy. BLADDER: No wall thickening or mass. REPRODUCTIVE: Within normal limits. INGUINAL: There is no lymphadenopathy or hernia. MUSCULOSKELETAL: There are degenerative changes of the lumbar spine. No acute abnormality is visualized. CONCLUSION: 1. There is fluid throughout most of the colon which is typically seen in patients with diarrhea. Oth erwise, no acute finding is identified on this noncontrast examination. 2. Nonacute findings include severe atherosclerotic disease and 3 mm nonobstructing left renal stone. Reji Urbina MD on September 29, 2016 at 11:49 Board Certified Radiologist. This report was verified electronically.
--- NOTE | 2016-09-29 12:59 | EKG ---
Date Performed: 09/29/2016 Time Performed: 11:17:21 PTAGE: 55 years EKG: SINUS BRADYCARDIA POSSIBLE LEFT ATRIAL ENLARGEMENT LEFT VENTRICULAR HYPERTROPHY AND ST-T CH [place] INFERIOR MYOCARDIAL INFARCTION ABNORMAL ECG PREVIOUS TRACING : 08/15/2016 09.12 compared to the previous EKG no significant change DOCTOR: Justice Oviedo Interpretating Date/Time 09/29/2016 12:57:36
== END 2016-09-29 12:24 | disposition left against medical advice (07) ==
LOC: NEPC 08:15
DX: E87.5 Hyperkalemia (principal); N17.9 Acute kidney failure, unspecified; R11.2 Nausea with vomiting, unspecified; E11.9 Type 2 diabetes mellitus without complications; I10 Essential (primary) hypertension; I25.10 Atherosclerotic heart disease of native coronary artery without angina pectoris; Z79.84 Long term (current) use of oral hypoglycemic drugs; Z79.899 Other long term (current) drug therapy
CPT/HCPCS: 74020; 74176; 80053; 83690; 85025; 93005; 96374; 96375; 99285; J2270; J2405; J7030

== ENCOUNTER 2016-10-15 12:47 | Observation (INO) | payer MEDICAID ==
[~2016-10-15] VITALS: Ht 162.6 cm; Wt 59.0 kg
[2016-10-15 12:49] VITALS: BP 138/60; PULSE 55; RESP 16; TEMP 97.6; O2SAT 100
[2016-10-15 12:57] VITALS: O2SAT 100
[2016-10-15] MEDS ORDERED: SODIUM CHLORIDE 0.9% FLUSH 10 ML FLUSH IVF PRN (13:00)
[2016-10-15] MEDS ORDERED: ASPI81TA19 PO (13:00)
[2016-10-15 13:14] LABS: AUTOMATED NEUTROPHIL # 2.3 TH/MM3 (1.8-7.7); EOSINOPHIL # 0.3 TH/MM3 (0-0.4); EOSINOPHIL % 5.2 % (0.0-4.0); HEMO FLAGS DIFF FINAL; LYMPH % 36.2 % (9.0-44.0); LYMPHOCYTE # 1.8 TH/MM3 (1.0-4.8); MEAN CELL VOLUME 90.7 FL (80.0-100.0); MEAN CORPUSCULAR HEMOGLOBIN 30.9 PG (27.0-34.0); MEAN CORPUSCULAR HGB CONC 34.1 % (32.0-36.0); NEUT % 46.6 % (16.0-70.0); PLATELET COUNT 264 TH/MM3 (150-450); RED BLOOD COUNT 3.52 MIL/MM3 (4.50-5.90); RED CELL DISTRIBUTION WIDTH 13.8 % (11.6-17.2); WHITE BLOOD COUNT 4.9 TH/MM3 (4.0-11.0)
[2016-10-15 13:25] LABS: APTT (PATIENT) 24.7 SEC (24.3-30.1); INTERNATIONAL NORMALIZED RATIO 1.1 RATIO
[2016-10-15 13:29] LABS: ANION GAP 6 MEQ/L (5-15); BICARBONATE 25.5 MEQ/L (21.0-32.0); BLOOD UREA NITROGEN 14 MG/DL (7-18); CHLORIDE 108 MEQ/L (98-107); GLOMERULAR FILTRATION RATE 83 ML/MIN (>89); MAGNESIUM 1.7 MG/DL (1.5-2.5); POTASSIUM 4.1 MEQ/L (3.5-5.1); SODIUM (NA) 139 MEQ/L (136-145)
--- NOTE | 2016-10-15 13:30 | RADRPT ---
EXAM DATE/TIME: 10/15/2016 12:56 [facility] COMPARISON: CHEST SINGLE AP, August 15, 2016, 3:20. INDICATIONS : Chest pain. MEDICAL HISTORY : Myocardial infarction. Diabetes mellitus type II. Hypertension. SURGICAL HISTORY : Defibrillator ENCOUNTER: Initial ACUITY: 1 day PAIN SCORE: 8/10 LOCATION: Bilateral chest FINDINGS: A single view of the chest demonstrates the lungs to be symmetrically aerated without evidence of mas s, infiltrate or effusion. The heart size is enlarged. There is a pacemaker overlying the left chest . No significant change compared to the prior study.. Osseous structures are intact. CONCLUSION: No acute disease. No significant change has occurred. Cardiomegaly. Jose Tompkins MD on October 15, 2016 at 13:27 Board Certified Radiologist. This report was verified electronically.
[2016-10-15 13:33] LABS: CREATINE KINASE 185 U/L (39-308)
[2016-10-15 13:45] LABS: CKMB 3.5 NG/ML (0.5-3.6)
--- NOTE | 2016-10-15 14:11 | PD ---
HPI Chief Complaint: Cardiac Complaint Time Seen by Provider: 12:51 Travel History International Travel<30 days: No Contact w/Intl Traveler<30days: No Traveled to known affect area: No History of Present Illness HPI 55-year-old male came to the emergency room brought by EMS emergently as a cardiac alert. As per the patient and EMS he was sitting by the porch when he suddenly started to get very lightheaded and dizzy. He slumped forward and fell and hit the top of his head on the wall. His daughter who was sitting next to him witnessed this and called 911. Patient denies having any chest pain at any point he did before, during or after the event. He says he had completely passed out. Patient has extensive cardiac history in the form of cardiac stents and AICD all of which was done at [place]. Patient was slightly bradycardic but otherwise hemodynamically stable. PFSH Past Medical History Narrative Medical List of his past medical, surgical, social and family history reviewed from the nursing note. 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 Reported Meds & Prescriptions Reported Meds & Active Scripts Active Pantoprazole (Pantoprazole Sodium) 40 Mg Tab 40 Mg PO DAILY Reported Aspir-Low (Aspirin) 81 Mg Tabdr 81 Mg PO DAILY Janumet (Sitagliptin-Metformin) 50-500 Mg Tab 1 Tab PO BID Clopidogrel (Clopidogrel Bisulfate) 75 Mg Tab 75 Mg PO DAILY Isosorbide Mononitrate ER (Isosorbide Mononitrate) 60 Mg Tab 60 Mg PO DAILY Atorvastatin (Atorvastatin Calcium) 40 Mg Tab 40 Mg PO HS Gabapentin 300 Mg Cap 300 Mg PO BID Narrative Medication List of his home medications reviewed from the nursing note. Review of Systems Except as stated in HPI: all other systems reviewed are Neg Physical Exam Narrative GENERAL: Awake, alert, anxious, no obvious distress SKIN: Focused skin assessment warm/dry. Abrasion on the vertex of the scalp HEAD: Atraumatic. Normocephalic. EYES: Pupils equal and round. No scleral icterus. No injection or drainage. ENT: No nasal bleeding or discharge. Mucous membranes pink and moist. NECK: Trachea midline. No JVD. CARDIOVASCULAR: Regular rate and rhythm. No murmur appreciated. RESPIRATORY: No accessory muscle use. Clear to auscultation. Breath sounds equal bilaterally. GASTROINTESTINAL: Abdomen soft, non-tender, nondistended. Hepatic and splenic margins not palpable. MUSCULOSKELETAL: No obvious deformities. No clubbing. No cyanosis. No edema. NEUROLOGICAL: Awake and alert. No obvious cranial nerve deficits. Motor grossly within normal limits. Normal speech. PSYCHIATRIC: Appropriate mood and affect; insight and judgment normal. Data Data Last Documented VS Orders Electrocardiogram (10/15/16 12:55) Basic Metabolic Panel (Bmp) (10/15/16 12:55) Ckmb (Isoenzyme) Profile (10/15/16 12:55) Complete Blood Count With Diff (10/15/16 12:55) Magnesium (Mg) (10/15/16 12:55) Prothrombin Time / Inr (Pt) (10/15/16 12:55) Act Partial Throm Time (Ptt) (10/15/16 12:55) Troponin I (10/15/16 12:55) Chest, Single Ap (10/15/16 12:55) Ecg Monitoring (10/15/16 12:55) Bilateral Bp Monitoring (10/15/16 12:55) Iv Access Insert/Monitor (10/15/16 12:55) Oximetry (10/15/16 12:55) Oxygen Administration (10/15/16 12:55) Sodium Chloride 0.9% Flush (Ns Flush) (10/15/16 13:00) CKMB (10/15/16 12:50) CKMB% (10/15/16 12:50) Ct Brain W/O Iv Contrast(Rout) (10/15/16 ) Admit Order (Ed Use Only) (10/15/16 14:30) Labs MDM Medical Decision Making Medical Screen Exam Complete: Yes Emergency Medical Condition: Yes Medical Record Reviewed: Yes Interpretation(s) Twelve-lead EKG was reviewed by me. Normal sinus rhythm, normal axis, bradycardia, peaked T waves, inferior T wave inversion, old inferior VA. Heart rate of 51 bpm. EKG is unchanged from 09/29/2016. Differential Diagnosis Dysrhythmia, ACS, intracranial bleed Narrative Course 2:08 PM patient's cardiac workup shows mildly elevated troponin. Ever patient did not have any chest pain during any point of the event. I would like his AICD to be interrogated. However patient does not know the name of the device. He said his waiter/waitress cocktail lounge Dr. Rodarte had [facility] I have asked Dr. Rodarte to be paged. Awaiting for her to call back. While I would prefer this patient to be admitted. I will order 2 baby aspirin's for him as well. Patient was hospitalized not too long ago for chest pain where he had a stress test done which was negative for acute coronary syndrome. My suspicion is that patient probably went into an arrhythmia and his AICD may or may not have fired during that point bleeding to the syncopal episode. As he had head injury I have ordered a CT head to rule out any intracranial bleed. Awaiting for the admitting team to call for admission. Procedures EKG Prior to Arrival: Yes Diagnosis Primary Impression: Elevated troponin Additional Impressions: Syncopal episodes Qualified Code: R55 - Syncope, unspecified syncope type possible dysrhythmia Admitting Information Admitting Physician Requests: Admit Scripts Lisinopril 20 Mg Tab20 Mg PO DAILY #30 TAB Prov:Milton Arnett 10/17/16 Carvedilol (Coreg)3.125 Mg Tab3.125 Mg PO Q12HR #60 TAB Prov:Milton Arnett 10/17/16 Amlodipine (Norvasc)5 Mg Tab5 Mg PO DAILY #30 TAB Prov:Milton Arnett 10/17/16 Micky Euceda MD Oct 15, 2016 14:11 Neutrophils # (Auto) 2.3 TH/MM3 Lymphocytes # (Auto) 1.8 TH/MM3 Monocytes # (Auto) 0.5 TH/MM3 Eosinophils # (Auto) 0.3 TH/MM3 Basophils # (Auto) 0.0 TH/MM3 CBC Comment DIFF FINAL Differential Comment Prothrombin Time 12.0 SEC Prothromb Time International 1.1 RATIO Ratio Activated Partial 24.7 SEC Thromboplast Time Sodium Level 139 MEQ/L Potassium Level 4.1 MEQ/L Chloride Level 108 MEQ/L Carbon Dioxide Level 25.5 MEQ/L Anion Gap 6 MEQ/L Blood Urea Nitrogen 14 MG/DL Creatinine 1.12 MG/DL Estimat Glomerular Filtration 83 ML/MIN Rate Random Glucose 113 MG/DL Calcium Level 8.7 MG/DL Magnesium Level 1.7 MG/DL Total Creatine Kinase 185 U/L Creatine Kinase MB 3.5 NG/ML Troponin I 0.06 NG/ML MDM Medical Decision Making Medical Screen Exam Complete: Yes Emergency Medical Condition: Yes Medical Record Reviewed: Yes Interpretation(s) Twelve-lead EKG was reviewed by me. Normal sinus rhythm, normal axis, bradycardia, peaked T waves, inferior T wave inversion, old inferior VA. Heart rate of 51 bpm. EKG is unchanged from 09/29/2016. Differential Diagnosis Dysrhythmia, ACS, intracranial bleed Narrative Course 2:08 PM patient's cardiac workup shows mildly elevated troponin. Ever patient did not have any chest pain during any point of the event. I would like his AICD to be interrogated. However patient does not know the name of the device. He said his waiter/waitress cocktail lounge Dr. Rodarte had gotten a [facility] I have asked Dr. Rodarte to be paged. Awaiting for her to call back. While I would prefer this patient to be admitted. I will order 2 baby aspirin's for him as well. Patient was hospitalized not too long ago for chest pain where he had a stress test done which was negative for acute coronary syndrome. My suspicion is that patient probably went into an arrhythmia and his AICD may or may not have fired during that point bleeding to the syncopal episode. As he had head injury I have ordered a CT head to rule out any intracranial bleed. Awaiting for the admitting team to call for admission. Procedures EKG Prior to Arrival: Yes Diagnosis Primary Impression: Elevated troponin Additional Impressions: Syncopal episodes Qualified Code: R55 - Syncope, unspecified syncope type possible dysrhythmia Admitting Information Admitting Physician Requests: Admit Micky Euceda MD Oct 15, 2016 14:11
--- NOTE | 2016-10-15 14:35 | RADRPT ---
EXAM DATE/TIME: 10/15/2016 14:20 [facility] COMPARISON: No previous studies available for comparison. INDICATIONS : Syncopal episode today. RADIATION DOSE: 34.23 CTDIvol (mGy) MEDICAL HISTORY : Cardiovascular disease. Hypertension. Cardiovascular disease SURGICAL HISTORY : None. ENCOUNTER: Initial ACUITY: 1 day PAIN SCALE: 4/10 LOCATION: cranial TECHNIQUE: Multiple contiguous axial images were obtained of the head. Using automated exposure control and adj ustment of the mA and/or kV according to patient size, radiation dose was kept as low as reasonably a chievable to obtain optimal diagnostic quality images. DICOM format image data is available electro nically for review and comparison. FINDINGS: CEREBRUM: The ventricles are normal for age. No evidence of midline shift, mass lesion, hemorrhage or acute in farction. Small old lacunar infarct in left basal ganglia. Small old infarct in the left occipital lo be. No extra-axial fluid collections are seen. POSTERIOR FOSSA: The cerebellum and brainstem are intact. The 4th ventricle is midline. The cerebellopontine angle i s unremarkable. EXTRACRANIAL: The visualized portion of the orbits is intact. SKULL: The calvaria is intact. No evidence of skull fracture. CONCLUSION: 1. No focal or acute intracranial hemorrhage. 2. Small old cortical infarct in the left occipital lobe. 3. Small old left basal ganglia infarct. Jose Tompkins MD on October 15, 2016 at 14:28 Board Certified Radiologist. This report was verified electronically.
--- NOTE | 2016-10-15 14:48 | HHI.HP ---
[facility] Service [facility] Primary Care Physician Reji Oliveira MD Admission Diagnosis syncope, possible dysrhythmia, elevated troponin Diagnoses: Chief Complaint: syncope, bradycardia Travel History International Travel<30 Days: No Contact w/Intl Traveler <30 Da: No Traveled to Known Affected Are: No History of Present Illness Written by BHUPENDRA Irvin acting as scribe for [Carlos] on 10/15/16 at 14: 34. 55 y/o sitting on his porch and a few hours after eating around 11am he became diaphoretic and he had leaned forward and his cousin states he fell forward out of the chair and passed out. He denies any symptoms of chest pain, or sob prior to the episode. Per a neighbor, she states when she came over he was disoriented and not talking well. He is unsure if his AICD fired, but he does not believe it did. He denies any chest pain, but states at times he does get a little tightening in his chest, like a needle stabbing. AICD placed at [facility], he is unsure who the seed packer was, possible Demond Kennedy. He states he was not given a card that states the company of his AICD. His seed packer in [facility] is Dr. Rodarte. Call placed to Dr. Rodarte by ED physician, no response back yet. Review of Systems Constitutional: COMPLAINS OF: Diaphoretic episodes, Fatigue, DENIES: Fever, Chills Respiratory: DENIES: Cough, Shortness of breath Cardiovascular: COMPLAINS OF: Chest pain, DENIES: Lower Extremity Edema Gastrointestinal: DENIES: Nausea, Vomiting Genitourinary: DENIES: Dysuria Musculoskeletal: DENIES: Back pain, Neck pain Integumentary: DENIES: Rash Hematologic/lymphatic: DENIES: Lymphadenopathy Immunologic/allergic: DENIES: Urticaria Neurologic: DENIES: Headache Past Family Social History Past Medical History VA Dyslipidemia DM CVA: right sided weakness Past Surgical History Stents AICD placement in [place] Reported Medications Reported Meds & Active Scripts Active Pantoprazole (Pantoprazole Sodium) 40 Mg Tab 40 Mg PO DAILY Norvasc (Amlodipine Besylate) 10 Mg Tab 10 Mg PO DAILY Reported Aspir-Low (Aspirin) 81 Mg Tabdr 81 Mg PO DAILY Janumet (Sitagliptin-Metformin) 50-500 Mg Tab 1 Tab PO BID Spironolactone 25 Mg Tab 25 Mg PO BIDPC Clopidogrel (Clopidogrel Bisulfate) 75 Mg Tab 75 Mg PO DAILY Isosorbide Mononitrate ER (Isosorbide Mononitrate) 60 Mg Tab 60 Mg PO DAILY Atorvastatin (Atorvastatin Calcium) 40 Mg Tab 40 Mg PO HS Lisinopril 40 Mg Tab 40 Mg PO DAILY Carvedilol 12.5 Mg Tab 12.5 Mg PO BID Gabapentin 300 Mg Cap 300 Mg PO BID Allergies: Coded Allergies: No Known Allergies (Unverified , 09/29/16) Active Ordered Medications Current Medications Medications (Trade) Dose Ordered Sig/Lorenza Route Start Time Stop Time Status Last Admin (NS Flush) 2 ml UNSCH PRN IVF 10/15/16 13:00 Family History Mom: HTN, Kidney Cancer, DM Sister: DM, CVA Social History Tobacco use: down to 4-5 cigarettes a day, prior 1PPD for 20 years Alcohol use: Occasionally Illicit drug use: Marijuana occasionally Physical Exam Vital Signs Vital Signs Date Time Temp Pulse Resp B/P Pulse Ox O2 Delivery O2 Flow Rate FiO2 10/15/16 12:57 100 Room Air 10/15/16 12:49 97.6 55 16 138/60 100 Physical Exam GENERAL: This is a well-nourished, well-developed patient, in no apparent distress. SKIN: No rashes, ecchymoses or lesions. Cool and dry. Abrasion to top of head. HEAD: Atraumatic. Normocephalic. No temporal or scalp tenderness. EYES: Pupils equal round and reactive. Extraocular motions intact. ENT: Nose without bleeding, purulent drainage or septal hematoma. Airway patent. NECK: Trachea midline. No JVD or lymphadenopathy. CARDIOVASCULAR: Regular rate and rhythm without murmurs, gallops, or rubs. RESPIRATORY: Clear to auscultation. Breath sounds equal bilaterally. No wheezes , rales, or rhonchi. GASTROINTESTINAL: Abdomen soft, non-tender, nondistended. No hepato-splenomegaly , or palpable masses. No guarding. MUSCULOSKELETAL: Extremities without clubbing, cyanosis, or edema. No joint tenderness, effusion, or edema noted. No calf tenderness. NEUROLOGICAL: Awake and alert. Motor and sensory grossly within normal limits. Normal speech. Laboratory Laboratory Tests Test 10/15/16 12:50 White Blood Count 4.9 Red Blood Count 3.52 Hemoglobin 10.9 Hematocrit 32.0 Mean Corpuscular Volume 90.7 Mean Corpuscular Hemoglobin 30.9 Mean Corpuscular Hemoglobin 34.1 Concent Red Cell Distribution Width 13.8 Platelet Count 264 Mean Platelet Volume 9.0 Neutrophils (%) (Auto) 46.6 Lymphocytes (%) (Auto) 36.2 Monocytes (%) (Auto) 11.0 Eosinophils (%) (Auto) 5.2 Basophils (%) (Auto) 1.0 Neutrophils # (Auto) 2.3 Lymphocytes # (Auto) 1.8 Monocytes # (Auto) 0.5 Eosinophils # (Auto) 0.3 Basophils # (Auto) 0.0 CBC Comment DIFF FINAL Differential Comment Prothrombin Time 12.0 Prothromb Time International 1.1 Ratio Activated Partial 24.7 Thromboplast Time Sodium Level 139 Potassium Level 4.1 Chloride Level 108 Carbon Dioxide Level 25.5 Anion Gap 6 Blood Urea Nitrogen 14 Creatinine 1.12 Estimat Glomerular Filtration 83 Rate Random Glucose 113 Calcium Level 8.7 Magnesium Level 1.7 Total Creatine Kinase 185 Creatine Kinase MB 3.5 Troponin I 0.06 Result Diagram: 10/15/16 1250 10/15/16 1250 Imaging Last Impressions Chest X-Ray 10/15/16 1255 Signed Impressions: Service Date/Time: Saturday, October 15, 2016 12:56 - CONCLUSION: No acute disease. No significant change has occurred. Cardiomegaly. Jose Tompkins MD Assessment and Plan Problem List: (1) Syncopal episodes ICD Code: R55 Status: Acute (2) Elevated troponin ICD Code: R74.8 Status: Acute (3) HTN (hypertension) ICD Code: I10 Status: Acute (4) DM (diabetes mellitus) ICD Code: E11.9 Status: Acute Assessment and Plan 55 y/o sitting on his porch and a few hours after eating around 11am he became diaphoretic and he had leaned forward and his cousin states he fell forward out of the chair and passed out. Syncope, suspected due to bradycardia, history of CAD Head Ct shows small old left basal ganglia infarct. No acute findings. EKG shows bradycardia, HR 51 -Consult cardiology for recommendations -Hold carvedilol -Carotid US ordered -Echo ordered -Resume home medications asa, Plavix, and Imdur -Record request from [facility] regarding name of AICD company Elevated troponin, likely chronic, no active chest pain Troponin 1st set .06,Last admit was around.10 -Serial troponin Q6hr HTN, chronic, currently controlled -Resume home medications: Lisinopril, and Norvasc DM, chronic, controlled -Resume home medication Janumet -Diabetic diet DVT prophylaxis: SCDs This note was transcribed by scribjerome [Molly Reis]. I, Dr. Cuauhtemoc Gonzalez personally performed the history, physical exam, and medical decision making; and confirmed the accuracy of the information in the transcribed note. Authenticated by Dr. Cuauhtemoc Gonzalez on 10/15/16 at 14:43. Discussed Condition With Patient, and family members Problem Qualifiers (1) Syncopal episodes: Qualified Code: R55 - Syncope, unspecified syncope type Molly Reis Oct 15, 2016 14:48 Cuauhtemoc Gonzalez MD Oct 15, 2016 16:44
[2016-10-15] MEDS ORDERED: SODIUM CHLORIDE 0.9% FLUSH 10 ML FLUSH IV FLUSH PRN (15:15)
[2016-10-15 16:21] VITALS: BP 148/67; PULSE 52; RESP 16; O2SAT 99
[2016-10-15 17:01] VITALS: BP 134/63; PULSE 58; RESP 18; TEMP 96.5; O2SAT 100
--- NOTE | 2016-10-15 17:16 | RADRPT ---
EXAM DATE/TIME: 10/15/2016 16:19 [facility] COMPARISON: No previous studies available for comparison. INDICATIONS : Syncope. MEDICAL HISTORY : Congestive heart failure. Hypercholesterolemia. Hypertension. Cerebrovascular accident. Myocardial i nfarction. Coronary artery disease. Diabetes. Depression. SURGICAL HISTORY : Coronary artery stent. Cardiac catheterization. ENCOUNTER: Initial ACUITY: 1 day PAIN SCORE: 0/10 LOCATION: Bilateral neck PEAK SYSTOLIC VELOCITIES (cm/sec): ICA/CCA RATIO: Right: 1.9 Left: 0.6 ICA: Right: 205.4 Left: 82.2 CCA: Right: 106.2 Left: 129.0 ECA: Right: 167.6 Left: 82.7 VERTEBRAL: Right: 22.4 antegrade Left: 41.2 antegrade Elevated flow velocities and ICA/CCA ratios have been found to correlate with increased degrees of vessel stenosis, calculated as percentage of diameter relative to a normal segment of distal ICA/CCA FINDINGS: RIGHT CAROTID: There is moderate atherosclerotic throughout the common carotid artery and at the bifurcation. There is flow in the internal and external vessels. However, there is elevated velocity in the right mba intern al carotid artery. LEFT CAROTID: There is mild to moderate atheroscle plaquing throughout the common carotid artery and at the bifurca tion. There is flow in both internal and external vessels. VERTEBRAL ARTERIES: Antegrade flow is seen in both vertebral arteries. CONCLUSION: 1. There is a least moderate atherosclerotic plaquing throughout the right common carotid artery and at the bifurcation. There is elevated velocity in the right internal carotid artery suggestive of at least a moderate stenosis. Recommend a CTA of the carotids for further valuation. 2. Mild to moderate atheroscle plaquing in the left carotid system. No focal high grade or hemodynami michael significant stenosis is demonstrated. Jose Tompkins MD on October 15, 2016 at 17:10 Board Certified Radiologist. This report was verified electronically.
[2016-10-15] MEDS: SPIRONOLACTONE 25 MG TAB PO SCH (18:16)
[2016-10-15 19:57] VITALS: BP 138/66; PULSE 68; RESP 18; TEMP 97.8; O2SAT 97
[2016-10-15] MEDS ORDERED: NON-FORMULARY DRUG (Sitagliptin-Metformin (Janumet) 1 TAB) PO SCH (21:00)
[2016-10-15] MEDS ORDERED: PT JANUMET PO SCH (21:00)
[2016-10-15] MEDS: PT JANUMET PO SCH (22:27)
[2016-10-15] MEDS: ATORVASTATIN 40 MG TAB PO SCH (22:27)
[2016-10-15] MEDS: SODIUM CHLORIDE 0.9% FLUSH 10 ML FLUSH IV FLUSH SCH (22:27)
[2016-10-16] VITALS (11 sets, daily range): BP systolic 111–170; BP diastolic 56–79; PULSE 50–80; RESP 16–18; TEMP 97.5–98.5; O2SAT 97–100
[2016-10-16 06:09] LABS: AUTOMATED NEUTROPHIL # 2.8 TH/MM3 (1.8-7.7); BASOPHIL % 0.8 % (0.0-2.0); EOSINOPHIL # 0.2 TH/MM3 (0-0.4); EOSINOPHIL % 4.1 % (0.0-4.0); HEMATOCRIT 30.4 % (39.0-51.0); HEMO FLAGS DIFF FINAL; LYMPH % 30.4 % (9.0-44.0); LYMPHOCYTE # 1.5 TH/MM3 (1.0-4.8); MEAN CELL VOLUME 91.3 FL (80.0-100.0); MEAN CORPUSCULAR HEMOGLOBIN 31.3 PG (27.0-34.0); MEAN CORPUSCULAR HGB CONC 34.3 % (32.0-36.0); MONO % 9.8 % (0.0-8.0); NEUT % 54.9 % (16.0-70.0); PLATELET COUNT 250 TH/MM3 (150-450); RED BLOOD COUNT 3.32 MIL/MM3 (4.50-5.90); RED CELL DISTRIBUTION WIDTH 13.7 % (11.6-17.2); WHITE BLOOD COUNT 5.1 TH/MM3 (4.0-11.0)
[2016-10-16 06:25] LABS: BICARBONATE 27.6 MEQ/L (21.0-32.0); POTASSIUM 3.9 MEQ/L (3.5-5.1)
[2016-10-16] MEDS: SPIRONOLACTONE 25 MG TAB PO SCH ×2 (08:53→17:53)
[2016-10-16] MEDS: CLOPIDOGREL 75 MG TAB PO SCH (08:53)
[2016-10-16] MEDS: ISOSORBIDE MONONITRATE 60 MG TAB PO SCH (08:53)
[2016-10-16] MEDS: ASPIRIN EC 81 MG TABEC PO SCH (08:53)
[2016-10-16] MEDS: SODIUM CHLORIDE 0.9% FLUSH 10 ML FLUSH IV FLUSH SCH ×2 (08:54→22:01)
[2016-10-16] MEDS: PT JANUMET PO SCH (08:54)
[2016-10-16] MEDS: PANTOPRAZOLE SOD 40 MG DELAYED RELEASE TAB PO SCH (08:54)
[2016-10-16] MEDS ORDERED: LISINOPRIL 20 MG TAB PO SCH (09:00)
--- NOTE | 2016-10-16 09:01 | HHI.PR ---
Subjective Remarks Follow up syncope. Patient sitting up in wheelchair. Denies any chest pain, sob , dizziness or fevers. He seems anxious to go home. Discussed with him pending tests and cardiology consult. No further syncopal episodes noted. Objective Vitals Vital Signs Date Time Temp Pulse Resp B/P Pulse Ox O2 Delivery O2 Flow Rate FiO2 10/16/16 07:35 97.6 60 18 144/68 100 10/16/16 04:00 98.0 64 16 147/73 98 128/64 10/16/16 04:00 54 10/16/16 02:40 50 10/16/16 00:00 98.0 77 18 128/74 98 10/15/16 19:57 97.8 68 18 138/66 97 10/15/16 17:01 96.5 58 18 134/63 100 10/15/16 16:21 52 16 148/67 99 10/15/16 12:57 100 Room Air 10/15/16 12:49 97.6 55 16 138/60 100 Result Diagram: 10/16/16 0453 10/16/16 0453 Imaging Last Impressions Chest X-Ray 10/15/16 1255 Signed Impressions: Service Date/Time: Saturday, October 15, 2016 12:56 - CONCLUSION: No acute disease. No significant change has occurred. Cardiomegaly. Jose Tompkins MD Head CT 10/15/16 0000 Signed Impressions: Service Date/Time: Saturday, October 15, 2016 14:20 - CONCLUSION: 1. No focal or acute intracranial hemorrhage. 2. Small old cortical infarct in the left occipital lobe. 3. Small old left basal ganglia infarct. Jose Tompkins MD Carotid Artery Ultrasound 10/15/16 0000 Signed Impressions: Service Date/Time: Saturday, October 15, 2016 16:19 - CONCLUSION: 1. There is a least moderate atherosclerotic plaquing throughout the right common carotid artery and at the bifurcation. There is elevated velocity in the right internal carotid artery suggestive of at least a moderate stenosis. Recommend a CTA of the carotids for further valuation. 2. Mild to moderate atheroscle plaquing in the left carotid system. No focal high grade or hemodynamically significant stenosis is demonstrated. Jose Tompkins MD Objective Remarks GENERAL: This is a well-nourished, well-developed patient, in no apparent distress. SKIN: No rashes, ecchymoses or lesions. Cool and dry. Abrasion to top of head. HEAD: Atraumatic. Normocephalic. EYES: Pupils equal round and reactive. NECK: Trachea midline. No JVD or lymphadenopathy. CARDIOVASCULAR: Regular rate and rhythm without murmurs, gallops, or rubs. RESPIRATORY: Clear to auscultation. Breath sounds equal bilaterally. No wheezes , rales, or rhonchi. GASTROINTESTINAL: Abdomen soft, non-tender, nondistended. MUSCULOSKELETAL: Extremities without clubbing, cyanosis, or edema. No joint tenderness, effusion, or edema noted. No calf tenderness. Medications and IVs Current Medications Medications (Trade) Dose Ordered Sig/Lorenza Route Start Time Stop Time Status Last Admin (Norvasc) 10 mg DAILY PO 10/16/16 09:00 (Ecotrin Ec) 81 mg DAILY PO 10/16/16 09:00 (Lipitor) 40 mg HS PO 10/15/16 21:00 10/15/16 22:27 (Plavix) 75 mg DAILY PO 10/16/16 09:00 (Imdur) 60 mg DAILY PO 10/16/16 09:00 (Protonix) 40 mg DAILY PO 10/16/16 09:00 (Aldactone) 25 mg BIDPC PO 10/15/16 18:00 10/15/16 18:16 (Prinivil) 40 mg DAILY PO 10/16/16 09:00 (NS Flush) 2 ml UNSCH PRN IV FLUSH 10/15/16 15:15 (NS Flush) 2 ml BID IV FLUSH 10/15/16 21:00 10/15/16 22:27 Patient Own Medication PT OWN MED: JANUMET ... BID PO 10/15/16 21:00 10/15/16 22:27 A/P Problem List: (1) Syncopal episodes ICD Code: R55 Status: Acute (2) Elevated troponin ICD Code: R74.8 Status: Acute (3) HTN (hypertension) ICD Code: I10 Status: Acute (4) DM (diabetes mellitus) ICD Code: E11.9 Status: Acute Assessment and Plan 55 y/o sitting on his porch and a few hours after eating around 11am he became diaphoretic and he had leaned forward and his cousin states he fell forward out of the chair and passed out. Syncope, suspected due to bradycardia, history of CAD Head Ct shows small old left basal ganglia infarct. No acute findings. EKG shows bradycardia, HR 51 -Cardiology consult pending -Cont to Hold carvedilol -Carotid US shows moderate stenosis in right internal artery, mild plaquing in left carotid. No focal high grade or hemodynamically significant stenosis. Recommended CTA -CTA Carotids ordered -Echo pending -Cont home medications asa, Plavix, and Imdur -Awaiting records from [facility] regarding name of AICD company Elevated troponin, likely chronic, no active chest pain Troponin 1st set .06, 2nd set .06 Last admit was around.10 -3rd set pending HTN, chronic, currently controlled -Cont home medications: Lisinopril, and Norvasc DM, chronic, controlled -Hold home medication Janumet due to CTA -Diabetic diet -Accuchecks AC/ HS ordered DVT prophylaxis: SCDs Problem Qualifiers (1) Syncopal episodes: Qualified Code: R55 - Syncope, unspecified syncope type Molly Reis Oct 16, 2016 09:01
[2016-10-16] MEDS ORDERED: IOHEXOL 350 MG/ML 10 ML VIAL (for RAD DIAG) IV ONE (09:54)
--- NOTE | 2016-10-16 10:32 | RADRPT ---
EXAM DATE/TIME: 10/16/2016 09:41 [place] COMPARISON: US CAROTID ARTERIES, October 15, 2016, 16:19. INDICATIONS : Stenosis, abnormal ultrasound IV CONTRAST: 75 cc Omnipaque 350 (iohexol) IV RADIATION DOSE: 15.44 CTDIvol (mGy) MEDICAL HISTORY : Cardiovascular disease. Cerebrovascular disease. Hypertension. SURGICAL HISTORY : Pacemaker. ENCOUNTER: Initial ACUITY: 1 day PAIN SCALE: 0/10 LOCATION: neck Elevated flow velocities and ICA/CCA ratios have been found to correlate with increased degrees of vessel stenosis, calculated as percentage of diameter relative to a normal segment of distal ICA/CCA. TECHNIQUE: Volumetric scanning was performed using a multirow detector CT scanner. The data was post processed with a variety of visualization algorithms including full-volume maximum intensity projection, multip lanar sliding thin-slab reformation, curved-planar reformation, and surface-rendering techniques. Us ing automated exposure control and adjustment of the mA and/or kV according to patient size, radiatio n dose was kept as low as reasonably achievable to obtain optimal diagnostic quality images. DICOM f ormat image data is available electronically for review and comparison. FINDINGS: There is circumferential atherosclerotic plaquing of the left common carotid, left subclavian artery origins, as well as the right common carotid artery, without hemodynamically significant carotid sten osis. Prominent calcific plaquing of the bilateral cavernous and supraclinoid carotid arteries. There is moderate atherosclerosis at the right greater than left carotid bifurcations. Focal atheroscleros is of the right carotid bulb at the bifurcation identified on the order of 43%. On the left there is focal luminal narrowing of 11% by NASCET criteria. There is approximately 50% stenosis of the left mi d to common carotid artery identified. The vertebral arteries are patent bilaterally. CONCLUSION: Atherosclerotic disease identified as described above without evidence for hemodynamically significan t stenosis. Jigar Galdamez MD on October 16, 2016 at 10:25 Board Certified Radiologist. This report was verified electronically.
--- NOTE | 2016-10-16 13:31 | EKG ---
Date Performed: 10/15/2016 Time Performed: 12:49:24 PTAGE: 55 years EKG: SINUS BRADYCARDIA VOLTAGE CRITERIA FOR LVH INFERIOR MYOCARDIAL INFARCTION ABNORMAL ECG NO PREVIOUS TRACING DOCTOR: Justice Oviedo Interpretating Date/Time 10/16/2016 13:23:55
--- NOTE | 2016-10-16 15:48 | ECHRPT ---
Indication: CONCLUSIONS The left ventricular systolic function is mafmtggz-by-mhhgdzr reduced with an estimated ejection fra ction in the range of 35-40%. Mildly dilated left ventricle. Moderate concentric left ventricular hypertrophy. Doppler parameters are consistent with impaired left ventricular relaxtion (grade 1 diastolic dysfun ction). A pacemaker wire is noted in the right ventricle. Mild mitral valve regurgitation. Mild aortic valve stenosis. There is mild tricuspid valve regurgitation. Mild pulmonary valve regurgitation. BP: / HR: Rhythm: MEASUREMENTS (Male / Female) Normal Values Technical Quality:Good 2D ECHO LV Diastolic Diameter PLAX 6.2 cm 4.2 - 5.9 / 3.9 - 5.3 cm LV Systolic Diameter PLAX 5.3 cm IVS Diastolic Thickness 2.2 cm 0.6 - 1.0 / 0.6 - 0.9 cm LVPW Diastolic Thickness 2.4 cm 0.6 - 1.0 / 0.6 - 0.9 cm LV Relative Wall Thickness 0.7 RV Internal Dim ED PLAX 2.7 cm M-MODE Aortic Root Diameter MM 3.3 cm LA Systolic Diameter MM 3.5 cm LA Ao Ratio MM 1.1 AV Cusp Separation MM 2.1 cm DOPPLER AV Peak Velocity 154.0 cm/s AV Peak Gradient 9.5 mmHg AV Mean Gradient 5.0 mmHg AV Velocity Time Integral 30.9 cm AI Peak Velocity 396.0 cm/s AI Peak Gradient 62.7 mmHg AI Pressure Half Time 758.0 ms LVOT Peak Velocity 61.7 cm/s LVOT Peak Gradient 1.5 mmHg LVOT Velocity Time Integral 12.4 cm Mitral E Point Velocity 55.8 cm/s Mitral A Point Velocity 79.5 cm/s Mitral E to A Ratio 0.7 LV E' Lateral Velocity 4.6 cm/s Mitral E to LV E' Lateral Ratio 12.2 LV E' Septal Velocity 5.5 cm/s Mitral E to LV E' Septal Ratio 10.2 TR Peak Velocity 219.0 cm/s TR Peak Gradient 19.2 mmHg FINDINGS LEFT VENTRICLE Mildly dilated left ventricle. Moderate concentric left ventricular hypertrophy. The left ventricular systolic function is ocxcxkgw-fi-uwagmby reduced with an estimated ejection fra ction in the range of 35-40%. Doppler parameters are consistent with impaired left ventricular relaxtion (grade 1 diastolic dysfun ction). RIGHT VENTRICLE Normal right ventricular size A pacemaker wire is noted. LEFT ATRIUM The left atrial size is normal. RIGHT ATRIUM The right atrial size is normal. ATRIAL SEPTUM The interatrial septum not well visualized. AORTA The aortic root and proximal ascending aorta are normal in size on limited imaging. MITRAL VALVE Structurally normal mitral valve. Mild mitral valve regurgitation. AORTIC VALVE Trileaflet aortic valve. Mild aortic valve stenosis. TRICUSPID VALVE Structurally normal tricuspid valve. There is mild tricuspid valve regurgitation. Normal estimated pulmonary pressures. PULMONARY VALVE Mild pulmonary valve regurgitation. VESSELS The inferior vena cava is normal in size. PERICARDIUM No pericardial effusion. Oni Oakley DO (Electronically Signed) Final Date:16 October 2016 15:47
[2016-10-16] MEDS: ATORVASTATIN 40 MG TAB PO SCH (22:01)
[2016-10-17] VITALS (7 sets, daily range): BP systolic 97–141; BP diastolic 53–66; PULSE 51–60; RESP 14–18; TEMP 97.8–98.5; O2SAT 98–100
[2016-10-17 08:20] LABS: AUTOMATED NEUTROPHIL # 3.2 TH/MM3 (1.8-7.7); BASOPHIL # 0.1 TH/MM3 (0-0.2); EOSINOPHIL # 0.2 TH/MM3 (0-0.4); EOSINOPHIL % 2.9 % (0.0-4.0); HEMATOCRIT 32.5 % (39.0-51.0); HEMO FLAGS DIFF FINAL; LYMPH % 29.5 % (9.0-44.0); LYMPHOCYTE # 1.7 TH/MM3 (1.0-4.8); MEAN CELL VOLUME 91.5 FL (80.0-100.0); MEAN CORPUSCULAR HEMOGLOBIN 30.3 PG (27.0-34.0); MEAN CORPUSCULAR HGB CONC 33.1 % (32.0-36.0); MONO % 10.3 % (0.0-8.0); NEUT % 56.3 % (16.0-70.0); PLATELET COUNT 261 TH/MM3 (150-450); RED BLOOD COUNT 3.55 MIL/MM3 (4.50-5.90); RED CELL DISTRIBUTION WIDTH 13.6 % (11.6-17.2); WHITE BLOOD COUNT 5.6 TH/MM3 (4.0-11.0)
--- NOTE | 2016-10-17 08:42 | HHI.PR ---
Subjective Remarks Follow-up for syncope. The patient is doing well today. He states he's been ambulating around the unit with no lightheadedness, dizziness, or gait unsteadiness. He states he used to use a cane and a walker after his stroke, but has regained much of his strength since that time. He states that he has noticed whenever he sits or stands up too quickly he does get a bit lightheaded. He states prior to his syncopal spell this week, he did get up quickly to go meet his cousin on the porch prior to sitting down and then passing out shortly thereafter. He feels like this may be related to his medication, because he states his symptoms of lightheaded and dizziness are usually worse a few minutes after he takes all his medications in the morning. Objective Vitals Vital Signs Date Time Temp Pulse Resp B/P Pulse Ox O2 Delivery O2 Flow Rate FiO2 10/17/16 07:51 98.0 53 16 141/65 100 124/57 112/62 10/17/16 04:22 98.5 58 18 133/66 98 10/17/16 04:00 54 10/17/16 00:00 54 10/16/16 23:29 98.5 80 18 111/56 97 10/16/16 20:01 60 10/16/16 19:57 98.0 62 18 167/74 98 10/16/16 16:01 53 10/16/16 15:50 97.5 50 18 170/74 99 10/16/16 11:55 98.0 51 18 166/74 98 163/67 168/79 10/16/16 08:35 51 I/O 10/16/16 10/16/16 10/16/16 10/17/16 10/17/16 10/17/16 07:00 15:00 23:00 07:00 15:00 23:00 Intake Total 960 ml 50 ml Balance 960 ml 50 ml Intake Oral 960 ml 50 ml # Voids 2 1 Result Diagram: 10/17/16 0616 10/16/16 0453 Imaging Last Impressions Neck CTA 10/16/16 0000 Signed Impressions: Service Date/Time: Sunday, October 16, 2016 09:41 - CONCLUSION: Atherosclerotic disease identified as described above without evidence for hemodynamically significant stenosis. Jigar Galdamez MD Chest X-Ray 10/15/16 1255 Signed Impressions: Service Date/Time: Saturday, October 15, 2016 12:56 - CONCLUSION: No acute disease. No significant change has occurred. Cardiomegaly. Jose Tompkins MD Head CT 10/15/16 0000 Signed Impressions: Service Date/Time: Saturday, October 15, 2016 14:20 - CONCLUSION: 1. No focal or acute intracranial hemorrhage. 2. Small old cortical infarct in the left occipital lobe. 3. Small old left basal ganglia infarct. Jose Tompkins MD Carotid Artery Ultrasound 10/15/16 0000 Signed Impressions: Service Date/Time: Saturday, October 15, 2016 16:19 - CONCLUSION: 1. There is a least moderate atherosclerotic plaquing throughout the right common carotid artery and at the bifurcation. There is elevated velocity in the right internal carotid artery suggestive of at least a moderate stenosis. Recommend a CTA of the carotids for further valuation. 2. Mild to moderate atheroscle plaquing in the left carotid system. No focal high grade or hemodynamically significant stenosis is demonstrated. Jose Tompkins MD Objective Remarks GENERAL: Well-developed well-nourished. In no acute distress. SKIN: Warm and dry. No lesions noted. HEENT: Normocephalic. Pupils equal and round. Mucous membranes pink and moist. CARDIOVASCULAR: Regular rate and rhythm. No murmur appreciated. RESPIRATORY: No accessory muscle use. Clear to auscultation. Breath sounds equal bilaterally. GASTROINTESTINAL: Abdomen soft, non-tender, nondistended. Bowel sounds x4. MUSCULOSKELETAL: No obvious deformities. No clubbing or cyanosis. No edema. NEUROLOGICAL: Awake and alert. No focal neurological deficits. Moves upper and lower extremities spontaneously. Normal speech. Strength 5/5. PSYCHIATRIC: Appropriate mood and affect; insight and judgment normal. A/P Problem List: (1) Syncopal episodes ICD Code: R55 Status: Acute (2) Elevated troponin ICD Code: R74.8 Status: Acute (3) HTN (hypertension) ICD Code: I10 Status: Chronic (4) DM (diabetes mellitus) ICD Code: E11.9 Status: Chronic Assessment and Plan 55 y/o sitting on his porch and a few hours after eating around 11am he became diaphoretic and he had leaned forward and his cousin states he fell forward out of the chair and passed out. Syncope, possibly secondary to arrhythmia or orthostatic hypotension Reviewed: Head Ct showed small old left basal ganglia infarct, no acute findings. EKG showed bradycardia, HR 51. Neck CTA showed atherosclerotic disease without evidence for hemodynamically significant stenosis. Echocardiogram as below. Orthostatic vital signs positive. -Cardiology consult pending -BP medications adjusted -Cont home medications asa, Plavix -HAILY hose Chronic systolic and diastolic heart failure: Echocardiogram with moderate to severe systolic function with EF 3540 % with moderate concentric LVH, grade 1 diastolic dysfunction. This is baseline per patient. -Held carvedilol as above, resume at 3.125. Elevated troponin, likely chronic, previously 0.10. No active chest pain. Troponin 0.063. HTN: With orthostasis as above. -Decrease lisinopril and carvedilol. Continue amlodipine and Imdur. Monitor and adjust medications as needed DM, chronic, controlled -Hold home medication Janumet due to CTA -Diabetic diet -Accuchecks AC/ HS ordered Dehydration: Creatinine 1.12 at admission, trended down to 0.88 with Aldactone held. Could worsen orthostasis as above. Appears euvolemic. -Continue to hold spironolactone and follow up with PCP and cardiology DVT prophylaxis: SCDs Discharge Planning Follow-up cardiology recommendations and monitor BP. Problem Qualifiers (1) Syncopal episodes: Qualified Code: R55 - Syncope, unspecified syncope type (2) HTN (hypertension): Qualified Code: I10 - Essential hypertension Milton Arnett Oct 17, 2016 08:42
[2016-10-17 08:43] LABS: BICARBONATE 24.9 MEQ/L (21.0-32.0); POTASSIUM 3.9 MEQ/L (3.5-5.1)
[2016-10-17] MEDS ORDERED: LISINOPRIL 20 MG TAB PO SCH (09:00)
[2016-10-17] MEDS ORDERED: CARVEDILOL 3.125 MG TAB PO SCH (09:00)
[2016-10-17] MEDS: PANTOPRAZOLE SOD 40 MG DELAYED RELEASE TAB PO SCH (09:19)
[2016-10-17] MEDS: ASPIRIN EC 81 MG TABEC PO SCH (09:19)
[2016-10-17] MEDS: CLOPIDOGREL 75 MG TAB PO SCH (09:20)
[2016-10-17] MEDS: SODIUM CHLORIDE 0.9% FLUSH 10 ML FLUSH IV FLUSH SCH (09:20)
[2016-10-17] MEDS: ISOSORBIDE MONONITRATE 60 MG TAB PO SCH (09:20)
[2016-10-17] MEDS ORDERED: CARV3.125 PO (17:29)
[2016-10-17] MEDS ORDERED: LISI-515 PO (17:29)
[2016-10-17] MEDS ORDERED: AMLO5 PO (17:29)
--- NOTE | 2016-10-17 17:35 | HHI.DS ---
Discharge Summary Admission Date Oct 15, 2016 at 14:31 Discharge Date: Oct 17, 2016 Admitting Diagnosis syncope, possible dysrhythmia, elevated troponin (1) Syncopal episodes ICD Code: R55 Diagnosis: Principal (2) Elevated troponin ICD Code: R74.8 Diagnosis: Secondary (3) HTN (hypertension) ICD Code: I10 Diagnosis: Secondary (4) DM (diabetes mellitus) ICD Code: E11.9 Diagnosis: Secondary (5) Ischemic cardiomyopathy ICD Code: I25.5 Diagnosis: Secondary (6) Orthostatic hypotension ICD Code: I95.1 Diagnosis: Principal Procedures None Brief History - From Admission 55 y/o sitting on his porch and a few hours after eating around 11am he became diaphoretic and he had leaned forward and his cousin states he fell forward out of the chair and passed out. He denies any symptoms of chest pain, or sob prior to the episode. Per a neighbor, she states when she came over he was disoriented and not talking well. He is unsure if his AICD fired, but he does not believe it did. He denies any chest pain, but states at times he does get a little tightening in his chest, like a needle stabbing. AICD placed at [facility], he is unsure who the webfed offset press operator was, possible Demond Kennedy. He states he was not given a card that states the company of his AICD. His webfed offset press operator in [facility] is Dr. Rodarte. Call placed to Dr. Rodarte by ED physician, no response back yet. CBC/BMP: 10/17/16 0616 10/17/16 0616 Significant Findings Laboratory Tests Test 10/15/16 10/15/16 10/16/16 10/16/16 12:50 20:24 04:53 18:24 Red Blood Count 3.52 MIL/MM3 3.32 MIL/MM3 (4.50-5.90) (4.50-5.90) Hemoglobin 10.9 GM/DL 10.4 GM/DL (13.0-17.0) (13.0-17.0) Hematocrit 32.0 % 30.4 % (39.0-51.0) (39.0-51.0) Monocytes (%) (Auto) 11.0 % 9.8 % (0.0-8.0) (0.0-8.0) Eosinophils (%) (Auto) 5.2 % (0.0-4.0) 4.1 % (0.0-4.0) Prothrombin Time 12.0 SEC (9.8-11.6) Chloride Level 108 MEQ/L (98-107) Estimat Glomerular Filtration 83 ML/MIN (>89) Rate Random Glucose 113 MG/DL (74-106) Troponin I 0.06 NG/ML 0.06 NG/ML 0.06 NG/ML (0.02-0.05) (0.02-0.05) (0.02-0.05) Test 10/17/16 06:16 Red Blood Count 3.55 MIL/MM3 (4.50-5.90) Hemoglobin 10.7 GM/DL (13.0-17.0) Hematocrit 32.5 % (39.0-51.0) Monocytes (%) (Auto) 10.3 % (0.0-8.0) Imaging Last Impressions Neck CTA 10/16/16 0000 Signed Impressions: Service Date/Time: Sunday, October 16, 2016 09:41 - CONCLUSION: Atherosclerotic disease identified as described above without evidence for hemodynamically significant stenosis. Jigar Galdamez MD Chest X-Ray 10/15/16 1255 Signed Impressions: Service Date/Time: Saturday, October 15, 2016 12:56 - CONCLUSION: No acute disease. No significant change has occurred. Cardiomegaly. Jose Tompkins MD Head CT 10/15/16 0000 Signed Impressions: Service Date/Time: Saturday, October 15, 2016 14:20 - CONCLUSION: 1. No focal or acute intracranial hemorrhage. 2. Small old cortical infarct in the left occipital lobe. 3. Small old left basal ganglia infarct. Jose Tompkins MD Carotid Artery Ultrasound 10/15/16 0000 Signed Impressions: Service Date/Time: Saturday, October 15, 2016 16:19 - CONCLUSION: 1. There is a least moderate atherosclerotic plaquing throughout the right common carotid artery and at the bifurcation. There is elevated velocity in the right internal carotid artery suggestive of at least a moderate stenosis. Recommend a CTA of the carotids for further valuation. 2. Mild to moderate atheroscle plaquing in the left carotid system. No focal high grade or hemodynamically significant stenosis is demonstrated. Jose Tompkins MD PE at Discharge GENERAL: Well-developed well-nourished. In no acute distress. SKIN: Warm and dry. No lesions noted. HEENT: Normocephalic. Pupils equal and round. Mucous membranes pink and moist. CARDIOVASCULAR: Regular rate and rhythm. No murmur appreciated. RESPIRATORY: No accessory muscle use. Clear to auscultation. Breath sounds equal bilaterally. GASTROINTESTINAL: Abdomen soft, non-tender, nondistended. Bowel sounds x4. MUSCULOSKELETAL: No obvious deformities. No clubbing or cyanosis. No edema. NEUROLOGICAL: Awake and alert. No focal neurological deficits. Moves upper and lower extremities spontaneously. Normal speech. Strength 5/5. PSYCHIATRIC: Appropriate mood and affect; insight and judgment normal. Pt update on day of discharge Patient with significant orthostatic hypotension today. He has been doing better with slow transitions. Pacemaker was interrogated, in no acute events. Since carvedilol was decreased, no further heart rate in the 40s. BP medications were adjusted, discussed with the patient. Discussed plan of care over the phone with the patient's webfed offset press operator, Dr. Rodarte. She agrees with current plan of care, asks to have the patient follow-up as outpatient in her office tomorrow. Patient is informed of this, and happy with this plan. Hospital Course 55 y/o sitting on his porch and a few hours after eating around 11am he became diaphoretic and he had leaned forward and his cousin states he fell forward out of the chair and passed out. Syncope, possibly secondary to bradyarrhythmia or orthostatic hypotension Reviewed: Head Ct showed small old left basal ganglia infarct, no acute findings. EKG showed bradycardia, HR 51. Neck CTA showed atherosclerotic disease without evidence for hemodynamically significant stenosis. Echocardiogram as below. Orthostatic vital signs significantly positive. Pacemaker interrogation unremarkable. -Cardiology consulted, discussed with Dr. Rodarte, recommended outpatient follow-up -BP medications adjusted -Cont home medications asa, Plavix -HAILY hose Chronic systolic and diastolic heart failure: Echocardiogram with moderate to severe systolic function with EF 3540 % with moderate concentric LVH, grade 1 diastolic dysfunction. This is baseline per patient. -Held carvedilol as above, resumed at 3.125. Elevated troponin, likely chronic, previously 0.10. No active chest pain. Troponin 0.063. HTN: With orthostasis as above. -Decrease lisinopril, amlodipine, and carvedilol. Continue Imdur but may need to decrease as well. Hold Aldactone. Follow-up with cardiology. Pt Condition on Discharge: Stable Discharge Disposition: Discharge Home Discharge Time: > 30 minutes Discharge Instructions DIET: Follow Instructions for: Heart Healthy Diet, Diabetic Diet Activities you can perform: Regular-No Restrictions Other Activity Instructions: Transition slowly from lying to sitting and sitting to standing. Wear HAILY hose. Follow up Referrals: Cardiology - Next Day with Tena Rodarte MD PCP Follow-up - 1 Week with Reji Oliveira MD New Medications: Amlodipine (Norvasc) 5 Mg Tab 5 MG PO DAILY Blood Pressure Management #30 TAB Carvedilol (Coreg) 3.125 Mg Tab 3.125 MG PO Q12HR CHF #60 TAB Lisinopril (Lisinopril) 20 Mg Tab 20 MG PO DAILY Blood Pressure Management #30 TAB Continued Medications: Aspirin DR (Aspir-Low) 81 Mg Tabdr 81 MG PO DAILY Atorvastatin (Atorvastatin) 40 Mg Tab 40 MG PO HS Cholesterol Management #30 Ref 0 TAB Clopidogrel (Clopidogrel) 75 Mg Tab 75 MG PO DAILY Blood Clot Prevention #30 Ref 0 TAB Gabapentin (Gabapentin) 300 Mg Cap 300 MG PO BID #60 Ref 0 CAP Isosorbide Mononitrate ER (Isosorbide Mononitrate ER) 60 Mg Tab 60 MG PO DAILY Prevent Chest Pain #30 Ref 0 TAB Pantoprazole (Pantoprazole) 40 Mg Tab 40 MG PO DAILY Reflux #30 TAB Sitagliptin-Metformin (Janumet) 50-500 Mg Tab 1 TAB PO BID Blood Sugar Management #60 Ref 0 TAB Discontinued Medications: Amlodipine (Norvasc) 10 Mg Tab 10 MG PO DAILY heart #30 TAB Carvedilol (Carvedilol) 12.5 Mg Tab 12.5 MG PO BID #60 Ref 0 TAB Lisinopril (Lisinopril) 40 Mg Tab 40 MG PO DAILY Blood Pressure Management #30 Ref 0 TAB Spironolactone (Spironolactone) 25 Mg Tab 25 MG PO BIDPC #60 Ref 0 TAB Milton Arnett Oct 17, 2016 17:35
[2016-10-18] MEDS ORDERED: amLODIPine BESYLATE 5 MG TAB PO SCH (09:00)
== END 2016-10-17 18:05 | disposition home or self-care (01) ==
LOC: NEPC 12:47 → NEDA 14:31 → NEPGCP 16:54
PROVIDERS: ADMIT Family Medicine; ATTEND Family Medicine
DX: R55 Syncope and collapse (principal); E86.0 Dehydration; R79.89 Other specified abnormal findings of blood chemistry; R00.1 Bradycardia, unspecified; I95.1 Orthostatic hypotension; R61 Generalized hyperhidrosis; R94.31 Abnormal electrocardiogram [ECG] [EKG]; R07.9 Chest pain, unspecified; I25.10 Atherosclerotic heart disease of native coronary artery without angina pectoris; I25.5 Ischemic cardiomyopathy; I50.42 Chronic combined systolic (congestive) and diastolic (congestive) heart failure; I11.0 Hypertensive heart disease with heart failure; I25.2 Old myocardial infarction; E11.9 Type 2 diabetes mellitus without complications; E78.5 Hyperlipidemia, unspecified; R53.1 Weakness; I69.351 Hemiplegia and hemiparesis following cerebral infarction affecting right dominant side; E78.00 Pure hypercholesterolemia, unspecified; F32.9 Major depressive disorder, single episode, unspecified; Z95.5 Presence of coronary angioplasty implant and graft; Z79.82 Long term (current) use of aspirin; F12.90 Cannabis use, unspecified, uncomplicated; F17.210 Nicotine dependence, cigarettes, uncomplicated; Z79.899 Other long term (current) drug therapy; Z95.810 Presence of automatic (implantable) cardiac defibrillator; W07.XXXA Fall from chair, initial encounter; Y92.009 Unspecified place in unspecified non-institutional (private) residence as the place of occurrence of the external cause
CPT/HCPCS: 70450; 70498; 71010; 80048; 82550; 82552; 82948; 83735; 84484; 85025; 85610; 85730; 93005; 93306; 93880; 99285; G0378; Q9967

== ENCOUNTER 2017-08-17 13:13 | Emergency (ER) | payer MEDICAID ==
[~2017-08-17 13:13] MED LIST changes: -AMLO10 PO; +AMLO5 PO; -ASPI1TAB69 PO; +ASPI81TA19 PO; -CARV12.52 PO; +CARV3.125 PO; +LISI-515 PO; -LISI40TA PO; -SPIR25TA PO
[2017-08-17 13:17] VITALS: BP 181/93; PULSE 73; RESP 18; TEMP 97.3; O2SAT 100
--- NOTE | 2017-08-17 13:24 | PD ---
HPI Chief Complaint: General Weakness Time Seen by Provider: 13:24 Travel History International Travel<30 days: No Contact w/Intl Traveler<30days: No Traveled to known affect area: No History of Present Illness HPI 56-year-old male with history of remote CVA, CAD, OR 2 with stent placement, presents emergency department for evaluation of shortness of breath worsening over the last 2 days. He has had a chest like pressure. He states that today it woke him up around 5:30 in the morning. He states he just was not feeling right. He began to try to do things to get ready but the shortness of breath prevented him from doing so. He went to go to lunch with his nephew. On the way there, he began to feel tongue tingling, similar to his previous heart attack. He became diaphoretic and nauseous. He decided to come the emergency department for further evaluation of this. PFSH Past Medical History Hx Anticoagulant Therapy: Yes Asthma: No Blood Disorders: No Anxiety: No Depression: Yes Heart Rhythm Problems: Yes Cancer: No Cardiac Catheterization: Yes Cardiovascular Problems: Yes High Cholesterol: Yes Chest Pain: Yes Congestive Heart Failure: Yes COPD: No Cerebrovascular Accident: Yes Coronary Artery Disease: Yes Diabetes: Yes Endocrine: Yes Genitourinary: No Hypertension: Yes Immune Disorder: No Implanted Vascular Access Dvce: Yes Musculoskeletal: No Neurologic: Yes (2 CVA - RIGHT SIDE WEAKNESS) Psychiatric: Yes Reproductive: No Respiratory: No Sleep Apnea: No Thyroid Disease: No ?: Not Past Surgical History Abdominal Surgery: No Body Medical Devices: AICD, CARDIAC STENT Cardiac Surgery: Yes Coronary Stent: Yes Other Surgery: Yes (AICD, CARDIAC CATH) Social History Alcohol Use: Yes (RARE) Tobacco Use: Yes (0.5 PPD) Substance Use: Yes (marijuana) Allergies-Medications (Allergen,Severity, Reaction): Coded Allergies: No Known Allergies (Unverified Adverse Reaction, Unknown, 08/17/17) Reported Meds & Prescriptions Reported Meds & Active Scripts Active Lisinopril 20 Mg Tab 20 Mg PO DAILY Coreg (Carvedilol) 3.125 Mg Tab 3.125 Mg PO Q12HR Norvasc (Amlodipine Besylate) 5 Mg Tab 5 Mg PO DAILY Pantoprazole (Pantoprazole Sodium) 40 Mg Tab 40 Mg PO DAILY Reported Aspir-Low (Aspirin) 81 Mg Tabdr 81 Mg PO DAILY Janumet (Sitagliptin-Metformin) 50-500 Mg Tab 1 Tab PO BID Clopidogrel (Clopidogrel Bisulfate) 75 Mg Tab 75 Mg PO DAILY Isosorbide Mononitrate ER (Isosorbide Mononitrate) 60 Mg Tab 60 Mg PO DAILY Atorvastatin (Atorvastatin Calcium) 40 Mg Tab 40 Mg PO HS Gabapentin 300 Mg Cap 300 Mg PO BID Review of Systems Except as stated in HPI: all other systems reviewed are Neg Physical Exam Narrative GENERAL: Well-nourished male patient, in no acute distress SKIN: Focused skin assessment warm/dry. HEAD: Atraumatic. Normocephalic. EYES: Pupils equal and round. No scleral icterus. No injection or drainage. ENT: No nasal bleeding or discharge. Mucous membranes pink and moist. NECK: Trachea midline. No JVD. CARDIOVASCULAR: Regular rate and rhythm. No murmur appreciated. RESPIRATORY: No accessory muscle use. Clear to auscultation. Breath sounds equal bilaterally. GASTROINTESTINAL: Abdomen soft, non-tender, nondistended. Hepatic and splenic margins not palpable. MUSCULOSKELETAL: No obvious deformities. No clubbing. No cyanosis. No edema. NEUROLOGICAL: Awake and alert. No obvious cranial nerve deficits. Motor grossly within normal limits. Normal speech. PSYCHIATRIC: Appropriate mood and affect; insight and judgment normal. Data Data Last Documented VS Vital Signs Date Time Temp Pulse Resp B/P (MAP) Pulse Ox O2 Delivery O2 Flow Rate FiO2 08/17/17 13:57 18 98 Room Air 08/17/17 13:17 97.3 73 181/93 (122) Orders Orders Electrocardiogram (08/17/17 13:32) Basic Metabolic Panel (Bmp) (08/17/17 13:32) Ckmb (Isoenzyme) Profile (08/17/17 13:32) Complete Blood Count With Diff (08/17/17 13:32) Magnesium (Mg) (08/17/17 13:32) Prothrombin Time / Inr (Pt) (08/17/17 13:32) Act Partial Throm Time (Ptt) (08/17/17 13:32) Troponin I (08/17/17 13:32) Lipase (08/17/17 13:32) Chest, Single Ap (08/17/17 13:32) Ecg Monitoring (08/17/17 13:32) Bilateral Bp Monitoring (08/17/17 13:32) Iv Access Insert/Monitor (08/17/17 13:32) Oximetry (08/17/17 13:32) Oxygen Administration (08/17/17 13:32) Sodium Chloride 0.9% Flush (Ns Flush) (08/17/17 13:45) B-Type Natriuretic Peptide (08/17/17 13:39) Aspirin Chew (Aspirin Chew) (08/17/17 13:45) CKMB (08/17/17 13:45) CKMB% (08/17/17 13:45) Labs Laboratory Tests Test 08/17/17 13:32 08/17/17 13:45 B-Type Natriuretic Peptide 105 PG/ML White Blood Count 7.1 TH/MM3 Red Blood Count 3.27 MIL/MM3 Hemoglobin 10.0 GM/DL Hematocrit 29.7 % Mean Corpuscular Volume 90.8 FL Mean Corpuscular Hemoglobin 30.5 PG Mean Corpuscular Hemoglobin Concent 33.6 % Red Cell Distribution Width 13.9 % Platelet Count 664 TH/MM3 Mean Platelet Volume 7.8 FL Neutrophils (%) (Auto) 64.6 % Lymphocytes (%) (Auto) 22.9 % Monocytes (%) (Auto) 9.0 % Eosinophils (%) (Auto) 2.3 % Basophils (%) (Auto) 1.2 % Neutrophils # (Auto) 4.6 TH/MM3 Lymphocytes # (Auto) 1.6 TH/MM3 Monocytes # (Auto) 0.6 TH/MM3 Eosinophils # (Auto) 0.2 TH/MM3 Basophils # (Auto) 0.1 TH/MM3 CBC Comment DIFF FINAL Differential Comment Prothrombin Time 11.3 SEC Prothromb Time International Ratio 1.1 RATIO Activated Partial Thromboplast Time 22.2 SEC Blood Urea Nitrogen 14 MG/DL Creatinine 1.27 MG/DL Random Glucose 189 MG/DL Calcium Level 9.2 MG/DL Magnesium Level 1.6 MG/DL Sodium Level 135 MEQ/L Potassium Level 4.2 MEQ/L Chloride Level 102 MEQ/L Carbon Dioxide Level 22.6 MEQ/L Anion Gap 10 MEQ/L Estimat Glomerular Filtration Rate 71 ML/MIN Total Creatine Kinase 138 U/L Creatine Kinase MB 1.2 NG/ML Troponin I 0.03 NG/ML Lipase 108 U/L MDM Medical Decision Making Medical Screen Exam Complete: Yes Emergency Medical Condition: Yes Medical Record Reviewed: Yes Differential Diagnosis ACS versus anxiety versus electrolyte abnormality versus vasovagal response Narrative Course 56-year-old male presents emergency department for evaluation. Workup is initiated here in the emergency department. Prior to workup completion, patient chooses to leave. He does not want to wait any longer for his results. He tells me that he will be "fine." AMA: The risks of leaving against medical advice without further evaluation treatment were discussed with the patient. These risks include cardiac dysfunction, cardiac dysrhythmia, possible heart attack, possible stroke or . The patient indicated understanding of these risks and appeared to have the capacity to make this decision. Diagnosis Primary Impression: Shortness of breath Additional Impression: Chest pain Qualified Codes: R07.9 - Chest pain, unspecified Disposition: 07 AGAINST MEDICAL ADVICE Condition: Stable Brenda Carrillo August 17, 2017 13:24
[2017-08-17] MEDS ORDERED: ASPIRIN 81 MG CHEW TAB PO ONE (13:45)
[2017-08-17] MEDS ORDERED: SODIUM CHLORIDE 0.9% FLUSH 10 ML FLUSH IVF PRN (13:45)
[2017-08-17 13:57] VITALS: RESP 18; O2SAT 98
[2017-08-17 14:04] LABS: AUTOMATED NEUTROPHIL # 4.6 TH/MM3 (1.8-7.7); BASOPHIL # 0.1 TH/MM3 (0-0.2); BASOPHIL % 1.2 % (0.0-2.0); EOSINOPHIL # 0.2 TH/MM3 (0-0.4); EOSINOPHIL % 2.3 % (0.0-4.0); HEMATOCRIT 29.7 % (39.0-51.0); LYMPH % 22.9 % (9.0-44.0); LYMPHOCYTE # 1.6 TH/MM3 (1.0-4.8); MEAN CELL VOLUME 90.8 FL (80.0-100.0); MEAN CORPUSCULAR HEMOGLOBIN 30.5 PG (27.0-34.0); MEAN CORPUSCULAR HGB CONC 33.6 % (32.0-36.0); MEAN PLATELET VOLUME 7.8 FL (7.0-11.0); MONOCYTE # 0.6 TH/MM3 (0-0.9); NEUT % 64.6 % (16.0-70.0); PLATELET COUNT 664 TH/MM3 (150-450); RED BLOOD COUNT 3.27 MIL/MM3 (4.50-5.90); RED CELL DISTRIBUTION WIDTH 13.9 % (11.6-17.2); WHITE BLOOD COUNT 7.1 TH/MM3 (4.0-11.0)
[2017-08-17 14:13] LABS: INTERNATIONAL NORMALIZED RATIO 1.1 RATIO; PROTHROMBIN TIME - PATIENT 11.3 SEC (9.8-11.6)
[2017-08-17 14:17] LABS: BICARBONATE 22.6 MEQ/L (21.0-32.0); BLOOD UREA NITROGEN 14 MG/DL (7-18); CALCIUM 9.2 MG/DL (8.5-10.1); CHLORIDE 102 MEQ/L (98-107); CREATININE 1.27 MG/DL (0.60-1.30); GLOMERULAR FILTRATION RATE 71 ML/MIN (>89); GLUCOSE,RANDOM 189 MG/DL (74-106); MAGNESIUM 1.6 MG/DL (1.5-2.5); SODIUM (NA) 135 MEQ/L (136-145)
[2017-08-17 14:22] LABS: TROPONIN I 0.03 NG/ML (0.02-0.05)
--- NOTE | 2017-08-17 14:27 | RADRPT ---
EXAM DATE/TIME: 08/17/2017 13:48 [facility] COMPARISON: CHEST SINGLE AP, October 15, 2016, 12:56. INDICATIONS : Chest pain and shortness of breath. MEDICAL HISTORY : Congestive heart failure. Hypercholesterolemia. Hypertension. Cerebrovascular accident. Myocardial in farction. Coronary artery disease. Diabetes. Depression. SURGICAL HISTORY : Coronary artery stent. Cardiac catheterization. ENCOUNTER: Initial ACUITY: 2 days PAIN SCORE: 2/10 LOCATION: Bilateral chest FINDINGS: Single AP view of the chest. Single lead cardiac pacemaker. Lungs clear. Cardiomediastinal silhouette within normal limits. No evidence of pleural effusion or pneumothorax. CONCLUSION: No acute cardiopulmonary disease identified. Felipe Shoemaker MD on August 17, 2017 at 14:25 Board Certified Radiologist. This report was verified electronically.
--- NOTE | 2017-08-18 12:23 | EKG ---
Date Performed: 08/17/2017 Time Performed: 13:31:32 PTAGE: 56 years EKG: Sinus rhythm LEFT VENTRICULAR HYPERTROPHY AND ST-T CHANGE INFERIOR MYOCARDIAL INFARCTION ABNORMAL ECG PREVIOUS TRACING : 10/15/2016 12.49 Since the previous tracing, no significant change noted DOCTOR: Vinicio Neal Interpretating Date/Time 08/18/2017 12:21:46
== END 2017-08-17 17:30 | disposition left against medical advice (07) ==
LOC: NEPE 13:13
DX: R06.02 Shortness of breath (principal); R07.9 Chest pain, unspecified; R94.31 Abnormal electrocardiogram [ECG] [EKG]; I25.10 Atherosclerotic heart disease of native coronary artery without angina pectoris; I11.0 Hypertensive heart disease with heart failure; I50.9 Heart failure, unspecified; F17.200 Nicotine dependence, unspecified, uncomplicated; F12.90 Cannabis use, unspecified, uncomplicated; Z53.20 Procedure and treatment not carried out because of patient's decision for unspecified reasons
CPT/HCPCS: 71045; 80048; 82550; 82552; 83690; 83735; 83880; 84484; 85025; 85610; 85730; 93005; 99285